=== PATIENT | male | born 1980 | race Caucasian/White ===

== ENCOUNTER → 2016-07-31 | Outpatient (CLI) | payer BC, OTHER ==
[~2016-07-31] MED LIST: IBUPOTC PO; LEVO125T3 PO; LINE600T PO; TEST200I14 IM; TYLE325T5 PO
== END | disposition home or self-care (01) ==
LOC: M WUC 15:42
PROVIDERS: ATTEND Family Medicine
DX: E29.1 Testicular hypofunction (principal)

== ENCOUNTER → 2016-08-28 | Outpatient (REF) | payer OTHER | END | disposition home or self-care (01) | LOC: M LAB REF 12:59 | PROVIDERS: ATTEND Surgery | DX: L72.3 Sebaceous cyst (principal) ==

== ENCOUNTER → 2016-10-12 | Outpatient (REF) | payer OTHER | LOC: M LAB REF 12:36 | PROVIDERS: ATTEND Physician Assistant | DX: J02.9 Acute pharyngitis, unspecified (principal) ==

== ENCOUNTER → 2016-11-07 | Outpatient (CLI) | payer BC, OTHER ==
[2016-11-07 20:03] LABS: ALBUMIN/GLOBULIN RATIO 1.11 (1.00-1.93); ALKALINE PHOSPHATASE 81 U/L (45-117); ALT/SGPT 34 U/L (12-78); ANION GAP 7 MEQ/L (8-16); AST/SGOT 16 U/L (15-37); BLOOD UREA NITROGEN 10 MG/DL (7-18); CALCIUM LEVEL 9.1 MG/DL (8.5-10.1); CARBON DIOXIDE LEVEL 29 MEQ/L (21-32); CHLORIDE LEVEL 103 MEQ/L (98-107); CREATININE FOR GFR 1.17 MG/DL (0.70-1.30); FREE T4 1.03 NG/DL (0.76-1.46); GLOMERULAR FILTRATION RATE > 60.0 (>60); GLUCOSE, FASTING 92 MG/DL (70-105); POTASSIUM SERUM 4.2 MEQ/L (3.5-5.1); SODIUM LEVEL 139 MEQ/L (136-145); TOTAL PROTEIN 7.6 GM/DL (6.4-8.2)
== END ==
LOC: M WUC 18:14
PROVIDERS: ATTEND Family Medicine
DX: E29.1 Testicular hypofunction (principal); E03.9 Hypothyroidism, unspecified

== ENCOUNTER → 2016-12-11 | Outpatient (REF) | payer OTHER | LOC: M LAB REF 13:25 | PROVIDERS: ATTEND Physician Assistant | DX: J02.9 Acute pharyngitis, unspecified (principal) ==

== ENCOUNTER → 2017-09-02 | Outpatient (CLI) | payer OTHER ==
[2017-09-02 18:57] LABS: ALBUMIN 4.1 GM/DL (3.2-5.2); ALBUMIN/GLOBULIN RATIO 1.11 (1.00-1.93); ALKALINE PHOSPHATASE 74 U/L (45-117); ALT/SGPT 56 U/L (12-78); ANION GAP 7 MEQ/L (8-16); AST/SGOT 25 U/L (7-37); BILIRUBIN,TOTAL 0.6 MG/DL (0.2-1.0); BLOOD UREA NITROGEN 9 MG/DL (7-18); CALCIUM LEVEL 9.1 MG/DL (8.5-10.1); CARBON DIOXIDE LEVEL 30 MEQ/L (21-32); CHLORIDE LEVEL 103 MEQ/L (98-107); CREATININE FOR GFR 1.05 MG/DL (0.70-1.30); GLOMERULAR FILTRATION RATE > 60.0 (>60); GLUCOSE, FASTING 76 MG/DL (70-100); POTASSIUM SERUM 4.2 MEQ/L (3.5-5.1); PROSTATIC SPECIFIC AG MONITOR 0.42 NG/ML (< 4.0); SODIUM LEVEL 140 MEQ/L (136-145); TOTAL PROTEIN 7.8 GM/DL (6.4-8.2)
[2017-09-02 20:15] LABS: TESTOSTERONE 449 NG/DL (241-827)
== END ==
LOC: M WUC 16:12
DX: E29.1 Testicular hypofunction (principal)
CPT/HCPCS: 84403

== ENCOUNTER → 2018-07-03 | Outpatient (CLI) | payer OTHER ==
[2018-07-03 12:15] LABS: ALBUMIN 3.9 GM/DL (3.2-5.2); ALBUMIN/GLOBULIN RATIO 1.08 (1.00-1.93); ALKALINE PHOSPHATASE 77 U/L (45-117); ALT/SGPT 42 U/L (12-78); ANION GAP 6 MEQ/L (8-16); AST/SGOT 19 U/L (7-37); BILIRUBIN,TOTAL 0.7 MG/DL (0.2-1.0); BLOOD UREA NITROGEN 11 MG/DL (7-18); CALCIUM LEVEL 9.4 MG/DL (8.5-10.1); CARBON DIOXIDE LEVEL 32 MEQ/L (21-32); CHLORIDE LEVEL 103 MEQ/L (98-107); CREATININE FOR GFR 1.16 MG/DL (0.70-1.30); FREE T3 3.4 PG/ML (2.2-4.0); FREE T4 0.91 NG/DL (0.76-1.46); GLOMERULAR FILTRATION RATE > 60.0 (>60); GLUCOSE, FASTING 79 MG/DL (70-100); PROSTATIC SPECIFIC AG MONITOR 0.6 NG/ML (< 4.0); SODIUM LEVEL 141 MEQ/L (136-145); TESTOSTERONE 312 NG/DL (241-827); TOTAL PROTEIN 7.5 GM/DL (6.4-8.2)
== END ==
LOC: M WUC 09:00
DX: E29.1 Testicular hypofunction (principal); E03.9 Hypothyroidism, unspecified
CPT/HCPCS: 84403

== ENCOUNTER → 2018-09-09 | Outpatient (CLI) | payer OTHER ==
[~2018-09-09] MED LIST changes: -LEVO125T3 PO; +LEVO125T4 PO; -LINE600T PO; +LINE600T11 PO
== END ==
LOC: M WUC 10:36
PROVIDERS: ATTEND Family Medicine
DX: E29.1 Testicular hypofunction (principal)

== ENCOUNTER 2018-09-21 12:35 | Emergency (ER) | payer BC, OTHER ==
[~2018-09-21] VITALS: Ht 180.3 cm; Wt 122.7 kg
[2018-09-21] MEDS ORDERED: LIDOCAINE W/EPINEPHRINE 1% 20ML VIAL SC ONE (13:00)
[2018-09-21 14:07] VITALS: BP 133/73
== END 2018-09-21 14:12 | disposition home or self-care (01) ==
LOC: M ED 12:35
DX: S01.419A Laceration without foreign body of unspecified cheek and temporomandibular area, initial encounter (principal); W50.0XXA Accidental hit or strike by another person, initial encounter; Y92.019 Unspecified place in single-family (private) house as the place of occurrence of the external cause

== ENCOUNTER → 2018-10-03 | Outpatient (CLI) | payer OTHER, BC ==
[2018-10-03 13:56] LABS: PROLACTIN 22.3 NG/ML (2.1-17.7)
== END ==
LOC: M WUC 10:34
PROVIDERS: ATTEND Family Medicine
DX: E29.1 Testicular hypofunction (principal)

== ENCOUNTER → 2019-01-26 | Outpatient (CLI) | payer OTHER, BC ==
[~2019-01-26] MED LIST changes: +ACET-683 PO; +CYCL5TAB PO; +IBUP200C25 PO; +LIDO5DIS41 TD; +LINE1TAB6 PO; -LINE600T11 PO
[2019-01-26 21:00] LABS: FREE T3 3.4 PG/ML (2.2-4.0)
[2019-01-26 21:01] LABS: FOLLICLE STIMULATING HORMONE < 0.3 mIU/mL (1.4-18.1); LUTEINIZING HORMONE < 0.1 mIU/mL (1.5-9.3); TESTOSTERONE 276 NG/DL (241-827)
== END ==
LOC: M WUC 15:57
PROVIDERS: ATTEND Family Medicine
DX: E29.1 Testicular hypofunction (principal); E03.9 Hypothyroidism, unspecified

== ENCOUNTER 2019-03-14 16:30 | Emergency (ER) | payer BC, OTHER ==
[~2019-03-14] VITALS: Ht 180.3 cm; Wt 117.9 kg
[~2019-03-14 16:30] MED LIST changes: -ACET-683 PO; -CYCL5TAB PO; -IBUP200C25 PO; -LIDO5DIS41 TD
[2019-03-14] MEDS ORDERED: IBUP200C25 PO (17:34)
[2019-03-14] MEDS ORDERED: LIDO5DIS41 TD (18:37)
[2019-03-14] MEDS ORDERED: ACET-683 PO (18:37)
[2019-03-14] MEDS ORDERED: CYCL5TAB PO (18:37)
[2019-03-14] MEDS ORDERED: NORCO 5/325MG TABLET (BULK FOR ED) PO ONE (18:45)
[2019-03-14] MEDS ORDERED: LIDOCAINE 5% (LIDODERM) PATCH TD ONE (18:45)
[2019-03-14 18:57] VITALS: BP 120/71
== END 2019-03-14 18:59 | disposition home or self-care (01) ==
LOC: M ED 16:30
DX: S39.92XA Unspecified injury of lower back, initial encounter (principal); X50.0XXA Overexertion from strenuous movement or load, initial encounter; Y92.149 Unspecified place in prison as the place of occurrence of the external cause; Y93.89 Activity, other specified; Y99.0 Civilian activity done for income or pay; E03.9 Hypothyroidism, unspecified; F17.210 Nicotine dependence, cigarettes, uncomplicated; Z79.890 Hormone replacement therapy; Z79.899 Other long term (current) drug therapy

== ENCOUNTER → 2019-09-09 | Outpatient (CLI) | payer BC, OTHER ==
[~2019-09-09] MED LIST changes: +ACET-683 PO; +CYCL5TAB PO; +IBUP200C25 PO; +LIDO5DIS41 TD
[2019-09-09 19:01] LABS: HEMATOCRIT 53.4 % (42.0-52.0); HEMOGLOBIN 18.6 g/dl (13.5-17.5); MEAN CORPUSCULAR HEMOGLOBIN 31.1 pg (27.0-33.0); MEAN CORPUSCULAR HGB CONC 34.8 g/dl (32.0-36.5); MEAN CORPUSCULAR VOLUME 89.3 fl (80.0-96.0); PLATELET COUNT, AUTOMATED 220 10^3/uL (150-450); RED BLOOD COUNT 5.98 10^6/uL (4.30-6.10); WHITE BLOOD COUNT 9.3 10^3/uL (4.0-10.0)
[2019-09-09 19:30] LABS: ALBUMIN 4.1 GM/DL (3.2-5.2); ALT/SGPT 63 U/L (12-78); BILIRUBIN,TOTAL 0.5 MG/DL (0.2-1.0); BLOOD UREA NITROGEN 4 MG/DL (7-18); CALCIUM LEVEL 9.5 MG/DL (8.5-10.1); CARBON DIOXIDE LEVEL 32 MEQ/L (21-32); CHLORIDE LEVEL 103 MEQ/L (98-107); CREATININE FOR GFR 1.03 MG/DL (0.70-1.30); FREE T3 3.6 PG/ML (2.2-4.0); FREE T4 1.18 NG/DL (0.76-1.46); GLOMERULAR FILTRATION RATE > 60.0 (>60); GLUCOSE, FASTING 76 MG/DL (70-100); POTASSIUM SERUM 4.6 MEQ/L (3.5-5.1); PROSTATIC SPECIFIC AG MONITOR 0.63 NG/ML (< 4.00); SODIUM LEVEL 141 MEQ/L (136-145); TOTAL PROTEIN 7.7 GM/DL (6.4-8.2)
[2019-09-09 19:31] LABS: PROLACTIN 21.7 NG/ML (2.1-17.7); TESTOSTERONE 904 NG/DL (241-827)
== END ==
LOC: M WUC 17:37
PROVIDERS: ATTEND Family Medicine
DX: Z79.899 Other long term (current) drug therapy (principal); E03.9 Hypothyroidism, unspecified

== ENCOUNTER 2019-11-09 00:34 | Emergency (ER) | payer BC, OTHER ==
[~2019-11-09] VITALS: Ht 180.3 cm; Wt 127.3 kg
[2019-11-09] MEDS ORDERED: NS 1,000 ML IV ONE (01:15)
[2019-11-09] MEDS ORDERED: KETOROLAC 30 MG/ML 1ML VIAL (J1885 PER 15MG) IV ONE (01:30)
[2019-11-09 01:34] LABS: BASO # 0.1 10^3/uL (0.0-0.2); BASO % 1.4 % (0.0-1.0); EOS # 0.5 10^3/uL (0.0-0.5); HEMATOCRIT 52.6 % (42.0-52.0); HEMOGLOBIN 18.6 g/dl (13.5-17.5); LYMPH # 2.7 10^3/uL (1.5-5.0); LYMPH % 27.2 % (24.0-44.0); MEAN CORPUSCULAR HEMOGLOBIN 31.3 pg (27.0-33.0); MEAN CORPUSCULAR HGB CONC 35.4 g/dl (32.0-36.5); MEAN CORPUSCULAR VOLUME 88.4 fl (80.0-96.0); MONO % 9.8 % (0.0-5.0); NEUTROPHILS # 5.5 10^3/uL (1.5-8.5); NEUTROPHILS % 56.4 % (36.0-66.0); PLATELET COUNT, AUTOMATED 276 10^3/uL (150-450); RED BLOOD COUNT 5.95 10^6/uL (4.30-6.10); WHITE BLOOD COUNT 9.8 10^3/uL (4.0-10.0)
--- NOTE | 2019-11-09 01:36 | REPVR ---
PROCEDURE INFORMATION: Exam: CT Abdomen And Pelvis Without Contrast Exam date and time: 11/09/2019 1:12 AM Age: 39 years old Clinical indication: Abdominal pain; Additional info: L colic TECHNIQUE: Imaging protocol: Computed tomography of the abdomen and pelvis without contrast. Radiation optimization: All CT scans at this facility use at least one of these dose optimization techniques: automated exposure control; mA and/or kV adjustment per patient size (includes targeted exams where dose is matched to clinical indication); or iterative reconstruction. COMPARISON: CT ABD PELVIS W/O CONTRAST 10/02/2014 11:12 AM FINDINGS: Liver: Normal. No mass. Gallbladder and bile ducts: Normal. No calcified stones. No ductal dilation. Pancreas: Normal. No ductal dilation. Spleen: Normal. No splenomegaly. Adrenals: Normal. No mass. Kidneys and ureters: Normal. No hydronephrosis. Stomach and bowel: Changes of prior partial gastrectomy. No gastric obstruction or inflammatory changes. No inflammatory changes in the colon or small bowel. No bowel obstruction. Appendix: No evidence of appendicitis. Intraperitoneal space: Unremarkable. No free air. No significant fluid collection. Vasculature: Unremarkable. No abdominal aortic aneurysm. Lymph nodes: Unremarkable. No enlarged lymph nodes. Bladder: Unremarkable as visualized. Reproductive: Unremarkable as visualized. Bones/joints: Unremarkable. No acute fracture. Soft tissues: Unremarkable. IMPRESSION: No acute findings. Electronically signed by: Ozzy Parker On 11/09/2019 01:36:00 AM
[2019-11-09 01:50] LABS: BLOOD UREA NITROGEN 8 MG/DL (7-18); CARBON DIOXIDE LEVEL 30 MEQ/L (21-32); CHLORIDE LEVEL 105 MEQ/L (98-107); GLOMERULAR FILTRATION RATE > 60.0 (>60); GLUCOSE, FASTING 108 MG/DL (70-100); POTASSIUM SERUM 4.1 MEQ/L (3.5-5.1); SODIUM LEVEL 140 MEQ/L (136-145)
[2019-11-09 03:13] LABS: APPEARANCE, URINE HAZY (CLEAR); BACTERIA, URINE AUTO NEGATIVE (NEGATIVE); BILIRUBIN, URINE AUTO 1+ (NEGATIVE); BLOOD, URINE BLOOD NEGATIVE (NEGATIVE); COLOR, URINE AMBER (YELLOW); GLUCOSE, URINE (UA) AUTO NEGATIVE (NEGATIVE); KETONE, URINE AUTO TRACE mg/dL (NEGATIVE); LEUKOCYTE ESTERASE, URINE AUTO TRACE (NEGATIVE); MUCUS, URINE LARGE (NEGATIVE); NITRITE, URINE AUTO NEGATIVE (NEGATIVE); PROTEIN, URINE AUTO 1+ mg/dL (NEGATIVE); RBC, URINE AUTO 1 /HPF (0-3); SPECIFIC GRAVITY URINE AUTO 1.026 (1.002-1.035); SQUAMOUS EPITHELIAL CELL UR AU 0 /HPF (0-6); WBC, URINE AUTO 5 /HPF (0-3)
[2019-11-09 04:32] LABS: CHLAMYDIA DNA AMPLIFICATION NEGATIVE (NEGATIVE); GC DNA AMPLIFICATION NEGATIVE (NEGATIVE)
[2019-11-09] MEDS ORDERED: DOXY100C37 PO (04:40)
[2019-11-09 04:45] VITALS: BP 125/74
== END 2019-11-09 04:51 | disposition home or self-care (01) ==
LOC: M ED 00:34
DX: N45.1 Epididymitis (principal); R42 Dizziness and giddiness; E03.9 Hypothyroidism, unspecified; Z98.84 Bariatric surgery status; Z87.891 Personal history of nicotine dependence; Z91.030 Bee allergy status; Z79.899 Other long term (current) drug therapy

== ENCOUNTER → 2020-04-06 | Outpatient (CLI) | payer BC, OTHER ==
[~2020-04-06] MED LIST changes: +DOXY100C37 PO
[2020-04-06 18:18] LABS: BASO # 0.1 10^3/uL (0.0-0.2); BASO % 1.5 % (0.0-1.0); EOS # 0.5 10^3/uL (0.0-0.5); EOS % 5.3 % (0.0-3.0); HEMATOCRIT 55.3 % (42.0-52.0); HEMOGLOBIN 19.1 g/dl (13.5-17.5); LYMPH # 2.1 10^3/uL (1.5-5.0); LYMPH % 23.5 % (24.0-44.0); MEAN CORPUSCULAR HEMOGLOBIN 31.2 pg (27.0-33.0); MEAN CORPUSCULAR HGB CONC 34.5 g/dl (32.0-36.5); MEAN CORPUSCULAR VOLUME 90.4 fl (80.0-96.0); MONO # 0.9 10^3/uL (0.0-0.8); NEUTROPHILS # 5.2 10^3/uL (1.5-8.5); PLATELET COUNT, AUTOMATED 237 10^3/uL (150-450); RED BLOOD COUNT 6.12 10^6/uL (4.30-6.10); WHITE BLOOD COUNT 8.8 10^3/uL (4.0-10.0)
[2020-04-06 18:31] LABS: ALBUMIN 3.8 GM/DL (3.2-5.2); ALT/SGPT 50 U/L (12-78); BILIRUBIN,TOTAL 0.6 MG/DL (0.2-1.0); BLOOD UREA NITROGEN 8 MG/DL (7-18); CALCIUM LEVEL 9.5 MG/DL (8.5-10.1); CARBON DIOXIDE LEVEL 28 MEQ/L (21-32); CHLORIDE LEVEL 107 MEQ/L (98-107); CREATININE FOR GFR 1.12 MG/DL (0.70-1.30); FOLATE 3.4 NG/ML; FREE T4 1.09 NG/DL (0.76-1.46); GLOMERULAR FILTRATION RATE > 60.0 (>60); GLUCOSE, FASTING 84 MG/DL (70-100); POTASSIUM SERUM 4.8 MEQ/L (3.5-5.1); SODIUM LEVEL 138 MEQ/L (136-145); THYROID PEROXIDASE ANTIBODY 857.5 U/ML (<60.0); TOTAL 25(OH) VITAMIN D 31.6 NG/ML (30.0-100.0); TOTAL PROTEIN 7.6 GM/DL (6.4-8.2); VITAMIN B12 LEVEL 1213 PG/ML
[2020-04-06 18:49] LABS: HEMOGLOBIN A1c 5.2 %
[2020-04-08 17:07] LABS: PSA TOTAL 0.7 ng/mL (0.0-4.0); TESTOSTERONE FREE (DIRECT) 11.7 pg/mL (8.7-25.1); THRYOGLOBULIN ANTIBODIES (ATA) < 1.0 IU/mL (0.0-0.9); THYROGLOBULIN QUANTITATIVE 26.8 ng/mL (1.4-29.2)
== END ==
LOC: M WUC 11:21
PROVIDERS: ATTEND Physician Assistant
DX: E29.1 Testicular hypofunction (principal); Z98.84 Bariatric surgery status; E66.8 Other obesity; E03.9 Hypothyroidism, unspecified

== ENCOUNTER → 2020-06-13 | Outpatient (CLI) | payer OTHER ==
[2020-06-13 10:14] LABS: BASO # 0.1 10^3/uL (0.0-0.2); BASO % 1.3 % (0.0-1.0); EOS # 0.4 10^3/uL (0.0-0.5); EOS % 4.6 % (0.0-3.0); HEMATOCRIT 53.8 % (42.0-52.0); HEMOGLOBIN 18.1 g/dl (13.5-17.5); LYMPH # 1.6 10^3/uL (1.5-5.0); LYMPH % 19.3 % (24.0-44.0); MEAN CORPUSCULAR HEMOGLOBIN 30.7 pg (27.0-33.0); MEAN CORPUSCULAR HGB CONC 33.6 g/dl (32.0-36.5); MEAN CORPUSCULAR VOLUME 91.3 fl (80.0-96.0); MONO # 0.9 10^3/uL (0.0-0.8); MONO % 10.4 % (0.0-5.0); NEUTROPHILS # 5.3 10^3/uL (1.5-8.5); NEUTROPHILS % 63.9 % (36.0-66.0); PLATELET COUNT, AUTOMATED 248 10^3/uL (150-450); RED BLOOD COUNT 5.89 10^6/uL (4.30-6.10); WHITE BLOOD COUNT 8.3 10^3/uL (4.0-10.0)
[2020-06-14 11:08] LABS: TESTOSTERONE FREE (DIRECT) 22.2 pg/mL (8.7-25.1)
== END ==
LOC: M WUC 08:10
PROVIDERS: ATTEND Physician Assistant
DX: E29.1 Testicular hypofunction (principal)

== ENCOUNTER 2020-08-27 00:11 | Emergency (ER) | payer BC, OTHER ==
[~2020-08-27] VITALS: Ht 177.8 cm; Wt 120.5 kg
--- OUTSIDE RECORDS SUMMARY | 2020-08-27 00:16 | CCD | Continuity of Care Document ---
Author Author Agustin BARTH Organization Unknown Address [address] [place] [address] 6 [address] [place] [address] Phone [phone] Care Team Providers Care Gun Welder Name Role Phone Wendy Chaparro D.O. AUTM Johnson Alan M.D. AUTM [phone] [facility] AUTM [phone] Jill Alvarado DYE HOUSE HAND AUTM [phone] Problems Active Problems Provider Date Obesity ALTON Mar Onset: 03/21/2020 Hypogonadism [place] Mar Onset: 03/21/2020 Secondary erectile dysfunction AL[place] Mar Onset: 0 03/21/2020 Bariatric operative procedure [place] Mar Onset: Obstructive sleep apnea syndrome AL[place] Mar Onset: 03/21/2020 Tobacco user [place] Mar Onset: 03/21/2020 Social History Type Date Description Comments Sex Unknown ETOH Use Currently consumes alcohol 12 pe r week Tobacco Use Start: Unknown Heavy tobacco smoker (more than 10 cigarettes/day) Recreational Drug Use Denies Drug Use Smoking Status Reviewed: 07/19/20 Heavy tobacco smoker (more than 10 cigarettes/day) Sun Exposure Uses sunscreen Seat Belt/Car Seat Always uses seat belt Allergies, Adverse Reactions, Alerts Description No Known Drug Allergies Medications Active Medications SIG Qnty Indications Ordering Provide r Date Fluconazole 150mg Tablets 1 tab by mouth as needed 3tabs N48.1 Wendy Chaparro D.OElba 05/24 Saxenda 18mg/3ML Solution Pen-Inje ct 0.6mg sq once daily week 1, 1.2mg once daily week 2, 1.8mg once daily week 3, 2.4mg once daily week 4, 3mg once daily week 5 45ml E66.8 Bessy Mullins.O. 04/21/2020 Novofine Plus 32G X 4 mm Misc pen needles to use with saxenda pen daily 100units E66.8 Wendy Apodaca er, D.O. 04/21/2020 Syringe/Luer Lock/3ML/20G X 1-1/2" 20G X 1-1/2" 3 ML Misc 1 for testoterone administration 1box E29.1 Bessy Flowers.O. 04/21/2020 BD Disposable Needle 23GX1" Precision Gl fabienne 23G X 1" Misc 1 for testosterone injection 1box E29.1 Bessy Ingram.O. 04/21/2020 Levothyroxine Sodium 125mcg Tablet s tk 1 t by mouth every day in the morning oes 90tabs Bessy Ramon.O. Testosterone Cypionate 200mg/ml So lution inject 1.5 mls intramuscularly every 2 weeks 10ml Bessy Ingram.O. Tadalafil 20mg Tablets tk 1 t by mouth every day as needed 30tabs Bessy Flowers.O. 0 History Medications Prednisone 50mg Tablets 1 by mouth every day 7tabs N48.1 Bessy Flowers.O. 05/24 - 07/19/2020 Fluconazole 150mg Tablets 1 tab by mouth as needed 3tabs B37.9 Bessy Flowers.OElba 04/21 - 05/24/2020 Immunizations Description No Information Available Vital Signs Date Vital Result Comment 07/19/2020 1:03pm BP Systolic 126 mmHg BP Diastolic 72 mmHg Height 71.2 inches 5'11.20" Weight 269.50 lb BMI (Body Mass Index) 37.4 kg/m2 Heart Rate 94 /min Respiratory Rate 18 /min Body Temperature 97.5 F O2 % BldC Oximetry 99 % [place] Body Weight 172 lb 05/24/2020 11:49am BP Systolic 124 mmHg BP Diastolic 78 mmHg Height 71.2 inches 5'11.20" Weight 267.25 lb BMI (Body Mass Index) 37.1 kg/m2 Heart Rate 89 /min Respiratory Rate 16 /min Body Temperature 98.0 F O2 % BldC Oximetry 97 % [place] Body Weight 172 lb Results Test Acquired Date Facility Test Result H/L Range Note Testosterone Free & Total 06/13/2020 [facility] Outpatient Testing (Registration) [address] [place] [address] [phone] Testosterone Free (Direct) 22.2 pg/mL Normal 8.7-2 5.1 1 Testosterone Total For T&D 814.0 ng/dL Normal 264-916 2 CBC With Differential 06/13/2020 [facility] Outpatient Iesha ting (Registration) [address] [place] [address] [phone] White Blood Count 8.3 10 Normal 4.0-10.0 Red Blood Count 5.89 10 Normal 4.30-6.10 Hemoglobin 18.1 g/dL High 13.5-17.5 Hematocrit 53.8 % High 42.0-52.0 Mean Corpuscular Volume 91.3 fl Normal 80.0-96.0 Mean Corpuscular Hemoglobin 30.7 pg Normal 27.0-33.0 Mean Corpuscular HGB Conc 33.6 g/dL Normal 32.0-36.5 Red Cell Distribution Width 13.5 % Normal 11.5-14.5 Platelet Count, Automated 248 10 Normal 150-450 Neutrophils % 63.9 % Normal 36.0-66.0 Lymph % 19.3 % Low 24.0-44.0 [place] % 10.4 % High 0.0-5.0 Eos % 4.6 % High 0.0-3.0 Baso % 1.3 % High 0.0-1.0 Immature Granulocyte % 0.5 % Normal 0-3.0 Nucleated Red Blood Cell % 0.0 % Normal 0-0 Neutrophils # 5.3 10 Normal 1.5-8.5 Lymph # 1.6 10 Normal 1.5-5.0 [place] # 0.9 10 High 0.0-0.8 Eos # 0.4 10 Normal 0.0-0.5 Baso # 0.1 10 Normal 0.0-0.2 CBC With Differential 04/06/2020 [facility] Outpatient Iesha ting (Registration) [address] [place] [address] [phone] White Blood Count 8.8 10 Normal 4.0-10.0 Red Blood Count 6.12 10 High 4.30-6.10 Hemoglobin 19.1 g/dL High 13.5-17.5 Hematocrit 55.3 % High 42.0-52.0 Mean Corpuscular Volume 90.4 fl Normal 80.0-96.0 Mean Corpuscular Hemoglobin 31.2 pg Normal 27.0-33.0 Mean Corpuscular HGB Conc 34.5 g/dL Normal 32.0-36.5 Red Cell Distribution Width 13.9 % Normal 11.5-14.5 Platelet Count, Automated 237 10 Normal 150-450 Neutrophils % 59.0 % Normal 36.0-66.0 Lymph % 23.5 % Low 24.0-44.0 [place] % 10.0 % High 0.0-5.0 Eos % 5.3 % High 0.0-3.0 Baso % 1.5 % High 0.0-1.0 Immature Granulocyte % 0.7 % Normal 0-3.0 Nucleated Red Blood Cell % 0.0 % Normal 0-0 Neutrophils # 5.2 10 Normal 1.5-8.5 Lymph # 2.1 10 Normal 1.5-5.0 [place] # 0.9 10 High 0.0-0.8 Eos # 0.5 10 Normal 0.0-0.5 Baso # 0.1 10 Normal 0.0-0.2 PSA Free & Total 04/06/2020 [facility] Outpatient Testi ng (Registration) [address] [place] [address] [phone] PSA Total 0.7 ng/mL Normal 0.0-4.0 3 PSA Comment (SEE NOTE) Normal . 4 Testosterone Free & Total 04/06/2020 [facility] Outpatient Testing (Registration) [address] [place] [address] [phone] Testosterone Free (Direct) 11.7 pg/mL Normal 8.7-2 5.1 Testosterone Total For T&D 623.0 ng/dL Normal 264-916 5 Comprehensive Metabolic Profil 04/06/2020 [facility] Outpa tient Testing (Registration) [address] [place] [address] [phone] Glucose, Fasting 84 mg/dL Normal 70-100 Blood Urea Nitrogen 8 mg/dL Normal 7-18 Creatinine For GFR 1.12 mg/dL Normal 0.70-1.30 Glomerular Filtration Rate > 60.0 Normal >60 6 Sodium Level 138 mEq/L Normal 136-145 Potassium Serum 4.8 mEq/L Normal 3.5-5.1 Chloride Level 107 mEq/L Normal 98-107 Carbon Dioxide Level 28 mEq/L Normal 21-32 Anion Gap 3 mEq/L Low 8-16 Calcium Level 9.5 mg/dL Normal 8.5-10.1 Ast/Sgot 22 U/L Normal 7-37 Alt/SGPT 50 U/L Normal 12-78 Alkaline Phosphatase 87 U/L Normal 45-117 Bilirubin,Total 0.6 mg/dL Normal 0.2-1.0 Total Protein 7.6 GM/DL Normal 6.4-8.2 Albumin 3.8 GM/DL Normal 3.2-5.2 Albumin/Globulin Ratio 1.0 Normal Laboratory test finding 04/06/2020 [facility] Outpatient T esting (Registration) [address] [place] [address] [phone] Total 25(Oh) Vitamin D 31.6 NG/ML Normal 30.0-100. 0 Vitamin B12 & Folate 04/06/2020 [facility] Outpatient Test ing (Registration) [address] [place] [address] [phone] Vitamin B12 Level 1213 pg/mL Normal 7 Folate 3.4 NG/ML Normal 8 FT4&TSH Panel 04/06/2020 [facility] Outpatient Testi ng (Registration) [address] [place], [place] [address] [phone] Thyroid Stimulating Hormone 3.140 uIU/ML Normal 0. 358-3.740 Free T4 1.09 ng/dL Normal 0.76-1.46 Laboratory test finding 04/06/2020 [facility] Outpatient T esting (Registration) [address] [place] [address] [phone] Thyroid Peroxidase Antibody 857.5 U/ML High <60. 0 Thyroglob QNT Incl Thyrogl [place] 04/06/2020 [facility] Outpa tient Testing (Registration) [address] [place] [address] [phone] Thyroglobulin Quantitative 26.8 ng/mL Normal 1.4-2 9.2 9 Thryoglobulin Antibodies (Ray) < 1.0 IU/mL Normal 0.0-0.9 10 Hemoglobin A1c 04/06/2020 [facility] Outpatient Testi ng (Registration) [address] [place] [address] [phone] Hemoglobin A1c 5.2 % Normal 11 Estimated Average Glucose 103 mg/dL Normal 60-110 1 Performed at: RN - [facility] [address] [id number] Slab Worker: Kat Sarah MD, Phone: [phone] 2 Adult male reference interva l is based on a population of healthy nonobese males (BMI <30) between 19 and 39 years old. Ana et.al. JCEM 2017,102;0886-7994. PMID: 09960890. 3 Dev ECLIA methodology. . According to the [place] [employer], Serum PSA should decrease and remain at undetectable levels after radical prostatectomy. The AUA defines biochemical recurrence as an initial PSA value 0.2 ng/mL or greater followed by a subsequent confirmatory PSA value 0.2 ng/mL or greater. Values obtained with different assay methods or kits cannot be used interchangeably. Results cannot be interpreted as absolute evidence of the presence or absence of malignant disease. 4 . The percent free PSA is performed on a reflex basis only when the total PSA is between 4.0 and 10.0 ng/mL. 5 Adult male reference interva l is based on a population of healthy nonobese males (BMI <30) between 19 and 39 years old. Ana, et.al. JCEM 2017,102;3454-3698. PMID: 25995689. 6 Units are mL/min/1.73 m2 Chronic Kidney Disease Staging per NKF: Stage I & II GFR >=60 Normal to Mildly Decreased Stage III GFR 30-59 Moderately Decreased Stage IV GFR 15-29 Severely Decreased Stage V GFR <15 Very Little GFR Left ESRD GFR <15 on LEAD CASTER HELPER 7 VITAMIN B12 NORMAL RANGE NORMAL 247 - 911 PG/ML INDETERMINATE 211 - 246 PG/ML DEFICIENT LESS THAN 211 PG/ML 8 FOLATE NORMAL RANGE NORMAL GREATER THAN 5.4 NG/ML INDETERMINATE 3.4-5.4 NG/ML DEFICIENT LESS THAN 3.4 NG/ML 9 . According to the National Academy of Clinical Biochemistry, the reference interval for Thyroglobulin (TG) should be related to euthyroid patients and not for patients who underwent thyroidectomy. TG reference intervals for these patients depend on the residual mass of the thyroid tissue left after surgery. Establishing a post-operative baseline is recommended. The assay limit of quantitation is 0.1 ng/mL . Thyroglobulin measured by Tita Skye Immunometric Assay Performed at: - [facility] [address] [id number] Slab Worker: Kat Sarah MD, Phone: [phone] 10 Thyroglobulin Antibody measu red by Tita Skye Methodology 11 REFERENCE RANGES: <=5.6% NORMAL 5.7-6.4% SUGGESTS IMPAIRED GLUCOSE META BOLISM/PREDIABETIC >= 6.5% ABNORMAL Procedures Description No Information Available Medical Devices Description No Information Available Encounters Type Date Location Provider Dx Diagnosis Office Visit 07/19/2020 1:00p [facility] [place] Mar E29.1 Testicular hypofunction G47.33 Obstructive sleep apnea (luz marina lt) (pediatric) Z98.84 Bariatric surgery status E66.8 Other obesity Z68.37 Body mass index [BMI] 37.0-3 7.9, adult Office Visit 05/24/2020 11:40a [facility] [place] Mar N48.1 Balanitis Office Visit 05/04/2020 3:20p [facility] [place] Mar B37.42 Candidal balanitis Office Visit 04/21/2020 2:20p [facility] [place] Mar E29.1 Testicular hypofunction G47.33 Obstructive sleep apnea (luz marina lt) (pediatric) Z98.84 Bariatric surgery status E66.8 Other obesity E03.9 Hypothyroidism, unspecified D75.1 Secondary polycythemia B37.9 Candidiasis, unspecified Office Visit 03/21/2020 2:00p [facility] [place] Mar E29.1 Testicular hypofunction G47.33 Obstructive sleep apnea (luz marina lt) (pediatric) Z98.84 Bariatric surgery status E66.8 Other obesity E03.9 Hypothyroidism, unspecified Assessments Date Code Description Provider 07/19/2020 E29.1 Testicular hypofunction Donovan Barth, PA 07/19/2020 G47.33 Obstructive sleep apnea (adult) (pediatric) Donovan Barth PA 07/19/2020 Z98.84 Bariatric surgery status [place] Mar 07/19/2020 E66.8 Other obesity Donovan Barth , PA 07/19/2020 Z68.37 Body mass index [BMI] 37.0-37.9, adult Donovan Barth PA 05/24/2020 N48.1 Balanitis Donovan Barth , PA 05/04/2020 B37.42 Candidal balanitis Donovan [place], PA 04/21/2020 E29.1 Testicular hypofunction Donovan Barth, PA 04/21/2020 G47.33 Obstructive sleep apnea (adult) (pediatric) Donovan Barth PA 04/21/2020 Z98.84 Bariatric surgery status Donovan Barth, [place] 04/21/2020 E66.8 Other obesity Donovan Barth , PA 04/21/2020 E03.9 Hypothyroidism, unspecified Juan C Barth, PA 04/21/2020 D75.1 Secondary polycythemia Donovan Barth, [place] 04/21/2020 B37.9 Candidiasis, unspecified Donovan Barth, PA 03/21/2020 E29.1 Testicular hypofunction Donovan Barth, PA 03/21/2020 G47.33 Obstructive sleep apnea (adult) (pediatric) [place] Mar 03/21/2020 Z98.84 Bariatric surgery status Donovan Barth, [place] 03/21/2020 E66.8 Other obesity Donovan Barth , PA 03/21/2020 E03.9 Hypothyroidism, unspecified Juan C Barth, PA Plan of Treatment 07/19/2020 - [place] Mar* E29.1 Testicular hypofunction* New Labs:* Testosterone Free & Total, Scheduled: 11/17/20 * PSA Free & Total, Scheduled: 11/17/20 * Comments:* Doing well with your current testosterone regimen. I've refilled your taladalafil. Call for any concerns. * G47.33 Obstructive sleep apnea (adult) (pediatric)* New Labs:* CBC With Differential, Scheduled: 11/17/20 * Comprehensive Metabolic Profil, Scheduled: 11/17/20 * Comments:* Continue your CPAP as prescribed. * Follow up:* 4 months with me for preventative. * Z98.84 Bariatric surgery status* Comments:* As noted below. * E66.8 Other obesity* New Labs:* FT4&TSH Panel, Scheduled: 11/17/20 * Comments:* Your weight has gone up compared with last time. Continue with saxenda as prescribed, and we will discuss further at followup. * Z68.37 Body mass index [BMI] 37.0-37.9, adult Functional Status Description No Information Available Mental Status Description No Information Available Referrals Refer to Reason for Referral Status Appt Date Jill Alvarado NP 39 year old male with penile irritation that has been refractory to conservative care. Please eval and treat. Closed [facility] [address], [address] [facility] [address] [place] [address] [phone]
--- OUTSIDE RECORDS SUMMARY | 2020-08-27 00:16 | CCD | Continuity of Care Document ---
Author Author Agustin ABRTH Organization Unknown Address [address] [place] [address] 6 [address] [place] [address] Phone [phone] Care Team Providers Care Wood Heel Cementer Name Role Phone Wendy Chaparro D.O. AUTM [phone] Johnson Alan M.D. AUTM [phone] [facility] AUTM [phone] Jill Alvarado TEACHER [employer] AUTM [phone] Problems Active Problems Provider Date Obesity ALTON [...] F O2 % BldC Oximetry 99 % [place] Body Weight 172 lb 05/24/2020 11:49am BP Systolic 124 mmHg BP Diastolic 78 mmHg Height 71.2 inches 5'11.20" Weight 267.25 lb BMI (Body Mass Index) 37.1 kg/m2 Heart Rate 89 /min Respiratory Rate 16 /min Body Temperature 98.0 F O2 % BldC Oximetry 97 % [place] Body Weight 172 lb Results Test Acquired Date Facility Test Result H/L Range Note Testosterone Free & Total 06/13/2020 [facility] Outpatient Testing (Registration) [address] [place] [address] [phone] Testosterone Free (Direct) 22.2 pg/mL Normal 8.7-2 5.1 1 Testosterone Total For T&D 814.0 ng/dL Normal 264-916 2 CBC With Differential 06/13/2020 [facility] Outpatient Iesha ting (Registration) [address] [place] [address] [phone] White Blood Count 8.3 10 Normal 4.0-10.0 [...] 36.0-66.0 Lymph % 19.3 % Low 24.0-44.0 [place] % 10.4 % High 0.0-5.0 Eos % 4.6 % High 0.0-3.0 Baso % 1.3 % High 0.0-1.0 Immature Granulocyte % 0.5 % Normal 0-3.0 Nucleated Red Blood Cell % 0.0 % Normal 0-0 Neutrophils # 5.3 10 Normal 1.5-8.5 Lymph # 1.6 10 Normal 1.5-5.0 [place] # 0.9 10 High 0.0-0.8 Eos # 0.4 10 Normal 0.0-0.5 Baso # 0.1 10 Normal 0.0-0.2 CBC With Differential 04/06/2020 [facility] Outpatient Iesha ting (Registration) [address] [place] [address] [phone] White Blood Count 8.8 10 Normal 4.0-10.0 [...] 36.0-66.0 Lymph % 23.5 % Low 24.0-44.0 [place] % 10.0 % High 0.0-5.0 Eos % 5.3 % High 0.0-3.0 Baso % 1.5 % High 0.0-1.0 Immature Granulocyte % 0.7 % Normal 0-3.0 Nucleated Red Blood Cell % 0.0 % Normal 0-0 Neutrophils # 5.2 10 Normal 1.5-8.5 Lymph # 2.1 10 Normal 1.5-5.0 [place] # 0.9 10 High 0.0-0.8 Eos # 0.5 10 Normal 0.0-0.5 Baso # 0.1 10 Normal 0.0-0.2 PSA Free & Total 04/06/2020 [facility] Outpatient Testi ng (Registration) [address] [place] [address] [phone] PSA Total 0.7 ng/mL Normal 0.0-4.0 3 PSA Comment (SEE NOTE) Normal . 4 Testosterone Free & Total 04/06/2020 [facility] Outpatient Testing (Registration) [address] [place] [address] [phone] Testosterone Free (Direct) 11.7 pg/mL Normal 8.7-2 5.1 Testosterone Total For T&D 623.0 ng/dL Normal 264-916 5 Comprehensive Metabolic Profil 04/06/2020 [facility] Outpa tient Testing (Registration) [address] [place] [address] [phone] Glucose, Fasting 84 mg/dL Normal 70-100 Blood [...] Ratio 1.0 Normal Laboratory test finding 04/06/2020 [facility] Outpatient T esting (Registration) [address] [place] [address] [phone] Total 25(Oh) Vitamin D 31.6 NG/ML Normal 30.0-100. 0 Vitamin B12 & Folate 04/06/2020 [facility] Outpatient Test ing (Registration) [address] [place] [address] [phone] Vitamin B12 Level 1213 pg/mL Normal 7 Folate 3.4 NG/ML Normal 8 FT4&TSH Panel 04/06/2020 [facility] Outpatient Testi ng (Registration) [address] [place], [place] [address] [phone] Thyroid Stimulating Hormone 3.140 uIU/ML Normal 0. 358-3.740 Free T4 1.09 ng/dL Normal 0.76-1.46 Laboratory test finding 04/06/2020 [facility] Outpatient T esting (Registration) [address] [place] [address] [phone] Thyroid Peroxidase Antibody 857.5 U/ML High <60. 0 Thyroglob QNT Incl Thyrogl [place] 04/06/2020 [facility] Outpa tient Testing (Registration) [address] [place] [address] [phone] Thyroglobulin Quantitative 26.8 ng/mL Normal 1.4-2 9.2 9 Thryoglobulin Antibodies (Ray) < 1.0 IU/mL Normal 0.0-0.9 10 Hemoglobin A1c 04/06/2020 [facility] Outpatient Testi ng (Registration) [address] [place] [address] [phone] Hemoglobin A1c 5.2 % Normal 11 Estimated Average Glucose 103 mg/dL Normal 60-110 1 Performed at: RN - [facility] [address] [id number] Coal Carrier: Kat Sarah MD, Phone: [phone] 2 Adult male reference interva l is based on a population of healthy nonobese males (BMI <30) between 19 and 39 years old. Ana et.al. JCEM 2017,102;0824-9018. PMID: 77427001. 3 Dev ECLIA methodology. . According to the [place] [employer], Serum PSA should decrease and [...] and 39 years old. Ana, et.al. JCEM 2017,102;6785-5753. PMID: 88913553. 6 Units are mL/min/1.73 m2 Chronic Kidney Disease Staging per NKF: Stage I & II GFR >=60 Normal to Mildly Decreased Stage III GFR 30-59 Moderately Decreased Stage IV GFR 15-29 Severely Decreased Stage V GFR <15 Very Little GFR Left ESRD GFR <15 on VENDING TECHNICIAN 7 VITAMIN B12 NORMAL RANGE NORMAL 247 [...] Skye Immunometric Assay Performed at: - [facility] [address] [id number] Coal Carrier: Kat Sarah MD, Phone: [phone] Thyroglobulin Antibody measu red by Tita Skye Methodology 11 REFERENCE RANGES: <=5.6% NORMAL 5.7-6.4% SUGGESTS IMPAIRED GLUCOSE META BOLISM/PREDIABETIC >= 6.5% ABNORMAL Procedures Description No Information Available Medical Devices Description No Information Available Encounters Type Date Location Provider Dx Diagnosis Office Visit 05/24/2020 11:40a [facility] [place] Mar N48.1 Balanitis Office Visit 05/04/2020 3:20p [facility] [place] Mar B37.42 Candidal balanitis Office Visit 04/21/2020 2:20p [facility] [place] Mar E29.1 Testicular hypofunction G47.33 Obstructive sleep apnea (luz marina lt) (pediatric) Z98.84 Bariatric surgery status E66.8 Other obesity E03.9 Hypothyroidism, unspecified D75.1 Secondary polycythemia B37.9 Candidiasis, unspecified Office Visit 03/21/2020 2:00p [facility] [place] Mar E29.1 Testicular hypofunction G47.33 Obstructive sleep apnea (luz marina lt) (pediatric) Z98.84 Bariatric surgery status E66.8 Other obesity E03.9 Hypothyroidism, unspecified Assessments Date Code Description Provider 07/19/2020 E29.1 Testicular hypofunction AL[place] Mar 07/19/2020 G47.33 Obstructive sleep apnea (adult) (pediatric) [place] Mar 07/19/2020 Z98.84 Bariatric surgery status [place] Mar 07/19/2020 E66.8 Other obesity Donovan Barth , PA 07/19/2020 Z68.37 Body mass index [BMI] 37.0-37.9, adult Donovan Barth PA 05/24/2020 N48.1 Balanitis Donovan Barth , PA 05/04/2020 B37.42 Candidal balanitis Donovan [place], PA 04/21/2020 E29.1 Testicular hypofunction Donovan Barth, PA 04/21/2020 G47.33 Obstructive sleep apnea (adult) (pediatric) Donovan Barth, PA 04/21/2020 Z98.84 Bariatric surgery status Donovan Barth, AL[place] 04/21/2020 E66.8 Other obesity Donovan Barth , [place] 04/21/2020 E03.9 Hypothyroidism, unspecified Juan C Barth, PA 04/21/2020 D75.1 Secondary polycythemia Donovan Barth, [place] 04/21/2020 B37.9 Candidiasis, unspecified Donovan Barth, PA 03/21/2020 E29.1 Testicular hypofunction Donovan Barth, PA 03/21/2020 G47.33 Obstructive sleep apnea (adult) (pediatric) Donovan Barth, [place] 03/21/2020 Z98.84 Bariatric surgery status Donovan Barth, [place] 03/21/2020 E66.8 Other obesity Donovan aBrth , [place] 03/21/2020 E03.9 Hypothyroidism, unspecified [place] Raya Plan of Treatment 07/19/2020 - [place] Mar* [...] conservative care. Please eval and treat. Closed [facility] [address], [address] [facility] [address] [place] [address] [phone]
--- OUTSIDE RECORDS SUMMARY | 2020-08-27 00:17 | CCD | Continuity of Care Document ---
Author Author Agustin BARTH Organization Unknown Address [address] [place] [address] 6 [address] [place] [address] Phone [phone] Care Team Providers Care Lusterer Name Role Phone Wendy Chaparro D.O. AUTM [phone] Johnson Alan M.D. AUTM [phone] [facility] AUTM [phone] Jill Alvarado ELECTRICAL MACHINE BUILDER AUTM [phone] Problems Active Problems Provider Date Obesity ALTON [...] Use Denies Drug Use Smoking Status Reviewed: 04/22/20 Heavy tobacco smoker (more than 10 cigarettes/day) Sun Exposure Uses sunscreen Seat Belt/Car Seat Always uses seat belt Allergies, Adverse Reactions, Alerts Description No Known Drug Allergies Medications Active Medications SIG Qnty Indications Ordering Provide r Date Fluconazole 150mg Tablets 1 tab by mouth as needed 3tabs N48.1 Wendy Chaparro D.OElba 05/24 Prednisone 50mg Tablets 1 by mouth every day 7tabs N48.1 Ana FlowersO. 05/24 Saxenda 18mg/3ML Solution Pen-Inje ct 0.6mg sq once daily week 1, 1.2mg once daily week 2, 1.8mg once daily week 3, 2.4mg once daily week 4, 3mg once daily week 5 45ml E66.8 Bessy Mullins.O. 04/21/2020 Novofine Plus 32G X 4 mm Misc pen needles to use with saxenda pen daily 100units E66.8 Wendy flower, Bessy.O. 04/21/2020 Syringe/Luer Lock/3ML/20G X 1-1/2" 20G X 1-1/2" 3 ML Misc 1 for testoterone administration 1box E29.1 Ana FlowersOElba 04/21/2020 BD Disposable Needle 23GX1" Precision Gl fabienne 23G X 1" Misc 1 for testosterone injection 1box E29.1 Ana IngramOElba 04/21/2020 Levothyroxine Sodium 125mcg Tablet s TK 1 T PO qd In The Morning Oes Unknown 00/0 000 Testosterone Cypionate 200mg/ml So lution inject 1.5 mls intramuscularly every 2 weeks 10ml Ana IngramOElba Tadalafil 20mg Tablets TK 1 T PO qd prn Unknown History Medications Fluconazole 150mg Tablets 1 tab by mouth as needed 3tabs B37.9 Wendy Chaparro D.O. 04/21 - 05/24/2020 Immunizations Description No Information Available Vital Signs Date Vital Result Comment 05/24/2020 11:49am BP Systolic 124 mmHg BP Diastolic 78 mmHg Height 71.2 inches 5'11.20" Weight 267.25 lb BMI (Body Mass Index) 37.1 kg/m2 Heart Rate 89 /min Respiratory Rate 16 /min Body Temperature 98.0 F O2 % BldC Oximetry 97 % [place] Body Weight 172 lb 05/04/2020 3:26pm BP Systolic 126 mmHg BP Diastolic 80 mmHg Height 71.2 inches 5'11.20" Weight 271.25 lb BMI (Body Mass Index) 37.6 kg/m2 Heart Rate 96 /min Respiratory Rate 16 /min Body Temperature 98.2 F O2 % BldC Oximetry 96 % [place] Body Weight 172 lb Results Test Acquired Date Facility Test Result H/L Range Note CBC With Differential 04/06/2020 [facility] Outpatient Iesha ting (Registration) [address] [place] [address] [phone] White Blood Count 8.8 10 Normal 4.0-10.0 [...] 36.0-66.0 Lymph % 23.5 % Low 24.0-44.0 [place] % 10.0 % High 0.0-5.0 Eos % 5.3 % High 0.0-3.0 Baso % 1.5 % High 0.0-1.0 Immature Granulocyte % 0.7 % Normal 0-3.0 Nucleated Red Blood Cell % 0.0 % Normal 0-0 Neutrophils # 5.2 10 Normal 1.5-8.5 Lymph # 2.1 10 Normal 1.5-5.0 [place] # 0.9 10 High 0.0-0.8 Eos # 0.5 10 Normal 0.0-0.5 Baso # 0.1 10 Normal 0.0-0.2 PSA Free & Total 04/06/2020 [facility] Outpatient Testi ng (Registration) [address] [place] [address] [phone] PSA Total 0.7 ng/mL Normal 0.0-4.0 1 PSA Comment (SEE NOTE) Normal . 2 Testosterone Free & Total 04/06/2020 [facility] Outpatient Testing (Registration) [address] [place] [address] [phone] Testosterone Free (Direct) 11.7 pg/mL Normal 8.7-2 5.1 Testosterone Total For T&D 623.0 ng/dL Normal 264-916 3 Comprehensive Metabolic Profil 04/06/2020 [facility] Outpa tient Testing (Registration) [address] [place] [address] [phone] Glucose, Fasting 84 mg/dL Normal 70-100 Blood Urea Nitrogen 8 mg/dL Normal 7-18 Creatinine For GFR 1.12 mg/dL Normal 0.70-1.30 Glomerular Filtration Rate > 60.0 Normal >60 4 Sodium Level 138 mEq/L Normal 136-145 Potassium [...] Ratio 1.0 Normal Laboratory test finding 04/06/2020 [facility] Outpatient T esting (Registration) [address] [place] [address] [phone] Total 25(Oh) Vitamin D 31.6 NG/ML Normal 30.0-100. 0 Vitamin B12 & Folate 04/06/2020 [facility] Outpatient Test ing (Registration) [address] [place] [address] [phone] Vitamin B12 Level 1213 pg/mL Normal 5 Folate 3.4 NG/ML Normal 6 FT4&TSH Panel 04/06/2020 [facility] Outpatient Testi ng (Registration) [address] [place] [address] [phone] Thyroid Stimulating Hormone 3.140 uIU/ML Normal 0. 358-3.740 Free T4 1.09 ng/dL Normal 0.76-1.46 Laboratory test finding 04/06/2020 [facility] Outpatient T esting (Registration) [address] [place] [address] [phone] Thyroid Peroxidase Antibody 857.5 U/ML High <60. 0 Thyroglob QNT Incl Thyrogl [place] 04/06/2020 [facility] Outpa tient Testing (Registration) [address] [place] [address] [phone] Thyroglobulin Quantitative 26.8 ng/mL Normal 1.4-2 9.2 7 Thryoglobulin Antibodies (Ray) < 1.0 IU/mL Normal 0.0-0.9 8 Hemoglobin A1c 04/06/2020 [facility] Outpatient Testi ng (Registration) [address] [place] [address] [phone] Hemoglobin A1c 5.2 % Normal 9 Estimated Average Glucose 103 mg/dL Normal 60-110 1 Dev ECLIA methodology. . According to the [place] [employer], Serum PSA should decrease and [...] the presence or absence of malignant disease. 2 . The percent free PSA is performed on a reflex basis only when the total PSA is between 4.0 and 10.0 ng/mL. 3 Adult male reference interva l is based on a population of healthy nonobese males (BMI <30) between 19 and 39 years old. Ana et.al. JCEM 2017,102;7878-9569. PMID: 19841215. 4 Units are mL/min/1.73 m2 Chronic Kidney Disease Staging per NKF: Stage I & II GFR >=60 Normal to Mildly Decreased Stage III GFR 30-59 Moderately Decreased Stage IV GFR 15-29 Severely Decreased Stage V GFR <15 Very Little GFR Left ESRD GFR <15 on SWIMMING COACH OR INSTRUCTOR 5 VITAMIN B12 NORMAL RANGE NORMAL 247 - 911 PG/ML INDETERMINATE 211 - 246 PG/ML DEFICIENT LESS THAN 211 PG/ML 6 FOLATE NORMAL RANGE NORMAL GREATER THAN 5.4 NG/ML INDETERMINATE 3.4-5.4 NG/ML DEFICIENT LESS THAN 3.4 NG/ML 7 . According to the National Academy of [...] by Tita Skye Immunometric Assay Performed at: RN - [facility] [address] [id number] Director Of Student Financial Services: Kat Sarah MD, Phone: [phone] Thyroglobulin Antibody measu red by Tita Skye Methodology 9 REFERENCE RANGES: <=5.6% NORMAL 5.7-6.4% SUGGESTS IMPAIRED GLUCOSE META BOLISM/PREDIABETIC >= 6.5% ABNORMAL Procedures Description No Information Available Medical Devices Description No Information Available Encounters Type Date Location Provider Dx Diagnosis Office Visit 05/24/2020 11:40a [facility] ALTON Mar N48.1 Balanitis Office Visit 05/04/2020 3:20p [facility] ALTON Mar B37.42 Candidal balanitis Office Visit 04/21/2020 2:20p [facility] ALTON Mar E29.1 Testicular hypofunction G47.33 Obstructive sleep apnea (luz marina lt) (pediatric) Z98.84 Bariatric surgery status E66.8 Other obesity E03.9 Hypothyroidism, unspecified D75.1 Secondary polycythemia B37.9 Candidiasis, unspecified Office Visit 03/21/2020 2:00p [facility] ALTON Mar E29.1 Testicular hypofunction G47.33 Obstructive sleep apnea (luz marina lt) (pediatric) Z98.84 Bariatric surgery status E66.8 Other obesity E03.9 Hypothyroidism, unspecified Assessments Date Code Description Provider 05/24/2020 N48.1 Balanitis ALTON Mar 05/04/2020 B37.42 Candidal balanitis ALTON Anderson 04/21/2020 E29.1 Testicular hypofunction ALTON Mar 04/21/2020 G47.33 Obstructive sleep apnea (adult) (pediatric) ALTON Mar 04/21/2020 Z98.84 Bariatric surgery status ALTON Mar 04/21/2020 E66.8 Other obesity ALTON Mar 04/21/2020 E03.9 Hypothyroidism, unspecified ALTON Raya 04/21/2020 D75.1 Secondary polycythemia ALTON Mar 04/21/2020 B37.9 Candidiasis, unspecified ALTON Mar 03/21/2020 E29.1 Testicular hypofunction ALTON Mar 03/21/2020 G47.33 Obstructive sleep apnea (adult) (pediatric) ALTON Mar 03/21/2020 Z98.84 Bariatric surgery status ALTON Mar 03/21/2020 E66.8 Other obesity ALTON Mar 03/21/2020 E03.9 Hypothyroidism, unspecified ALTON Raya Plan of Treatment Future Appointment(s):* 07/19/2020 1:00 pm - ALTON Mar at [facility] 05/24/2020 - ALTON Mar* N48.1 Balanitis* New Medication:* Fluconazole 150 mg - 1 tab by mouth as needed * Prednisone 50 mg - 1 by mouth every day * Comments:* For the time being, we will treat you with antifungal and steroids, and will refer you to dermatology. Call for any concerns. * Referral:* Jill Alvarado NP, Nurse Practitioner * Follow up:* As already scheduled. Functional Status Description No Information Available Mental Status Description No Information Available Referrals Refer to Reason for Referral Status Appt Date Jill Alvarado NP 39 year old male with penile irritation that has been refractory to conservative care. Please eval and treat. Sent [facility] [address], [address] [facility] [address] [place] [address] [phone]
--- OUTSIDE RECORDS SUMMARY | 2020-08-27 00:17 | CCD | Continuity of Care Document ---
Author Author Agustin BARTH Organization Unknown Address [address] [place] [address] 6 [address] [place] [address] Phone [phone] Care Team Providers Care Cardiac Nurse Name Role Phone Wendy Chaparro D.O. AUTM Johnson Alan M.D. AUTM [phone] [facility] AUTM [phone] Jill Alvarado ENTREPRENEURSHIP PROGRAM DIRECTOR AUTM [phone] Problems Active Problems Provider Date Obesity ALTON [...] F O2 % BldC Oximetry 97 % [place] Body Weight 172 lb 05/04/2020 3:26pm BP Systolic 126 mmHg BP Diastolic 80 mmHg Height 71.2 inches 5'11.20" Weight 271.25 lb BMI (Body Mass Index) 37.6 kg/m2 Heart Rate 96 /min Respiratory Rate 16 /min Body Temperature 98.2 F O2 % BldC Oximetry 96 % [place] Body Weight 172 lb Results Test Acquired Date Facility Test Result H/L Range Note Testosterone Free & Total 06/13/2020 [facility] Outpatient Testing (Registration) [address] [place], [place] [address] [phone] Testosterone Free (Direct) 22.2 pg/mL Normal 8.7-2 5.1 1 Testosterone Total For T&D 814.0 ng/dL Normal 264-916 2 CBC With Differential 06/13/2020 [facility] Outpatient Iesha ting (Registration) [address] [place] [address] [phone] White Blood Count 8.3 10 Normal 4.0-10.0 [...] 36.0-66.0 Lymph % 19.3 % Low 24.0-44.0 [place] % 10.4 % High 0.0-5.0 Eos % 4.6 % High 0.0-3.0 Baso % 1.3 % High 0.0-1.0 Immature Granulocyte % 0.5 % Normal 0-3.0 Nucleated Red Blood Cell % 0.0 % Normal 0-0 Neutrophils # 5.3 10 Normal 1.5-8.5 Lymph # 1.6 10 Normal 1.5-5.0 [place] # 0.9 10 High 0.0-0.8 Eos # 0.4 10 Normal 0.0-0.5 Baso # 0.1 10 Normal 0.0-0.2 CBC With Differential 04/06/2020 [facility] Outpatient Iesha ting (Registration) [address] [place] [address] [phone] White Blood Count 8.8 10 Normal 4.0-10.0 [...] 36.0-66.0 Lymph % 23.5 % Low 24.0-44.0 [place] % 10.0 % High 0.0-5.0 Eos % 5.3 % High 0.0-3.0 Baso % 1.5 % High 0.0-1.0 Immature Granulocyte % 0.7 % Normal 0-3.0 Nucleated Red Blood Cell % 0.0 % Normal 0-0 Neutrophils # 5.2 10 Normal 1.5-8.5 Lymph # 2.1 10 Normal 1.5-5.0 [place] # 0.9 10 High 0.0-0.8 Eos # 0.5 10 Normal 0.0-0.5 Baso # 0.1 10 Normal 0.0-0.2 PSA Free & Total 04/06/2020 [facility] Outpatient Testi ng (Registration) [address] [place] [address] [phone] PSA Total 0.7 ng/mL Normal 0.0-4.0 3 PSA Comment (SEE NOTE) Normal . 4 Testosterone Free & Total 04/06/2020 [facility] Outpatient Testing (Registration) [address] [place] [address] [phone] Testosterone Free (Direct) 11.7 pg/mL Normal 8.7-2 5.1 Testosterone Total For T&D 623.0 ng/dL Normal 264-916 5 Comprehensive Metabolic Profil 04/06/2020 [facility] Outpa tient Testing (Registration) [address] [place] [address] [phone] Glucose, Fasting 84 mg/dL Normal 70-100 Blood [...] Ratio 1.0 Normal Laboratory test finding 04/06/2020 [facility] Outpatient T esting (Registration) [address] [place], [place] [address] [phone] Total 25(Oh) Vitamin D 31.6 NG/ML Normal 30.0-100. 0 Vitamin B12 & Folate 04/06/2020 [facility] Outpatient Test ing (Registration) [address] [place] [address] [phone] Vitamin B12 Level 1213 pg/mL Normal 7 Folate 3.4 NG/ML Normal 8 FT4&TSH Panel 04/06/2020 [facility] Outpatient Testi ng (Registration) [address] [place] [address] [phone] Thyroid Stimulating Hormone 3.140 uIU/ML Normal 0. 358-3.740 Free T4 1.09 ng/dL Normal 0.76-1.46 Laboratory test finding 04/06/2020 [facility] Outpatient T esting (Registration) [address] [place] [address] [phone] Thyroid Peroxidase Antibody 857.5 U/ML High <60. 0 Thyroglob QNT Incl Thyrogl [place] 04/06/2020 [facility] Outpa tient Testing (Registration) [address] [place] [address] [phone] Thyroglobulin Quantitative 26.8 ng/mL Normal 1.4-2 9.2 9 Thryoglobulin Antibodies (Ray) < 1.0 IU/mL Normal 0.0-0.9 10 Hemoglobin A1c 04/06/2020 [facility] Outpatient Testi juan r (Registration) [address] [place] [address] [phone] Hemoglobin A1c 5.2 % Normal 11 Estimated Average Glucose 103 mg/dL Normal 60-110 1 Performed at: RN - [facility] [address] [id number] Continuous Wave Operator: Kat Sarah MD, Phone: [phone] 2 Adult male reference interva l is based on a population of healthy nonobese males (BMI <30) between 19 and 39 years old. Ana, et.al. JCEM 2017,102;9789-9866. PMID: 37773852. 3 Dev ECLIA methodology. . According to the [place] [employer], Serum PSA should decrease and [...] <30) between 19 and 39 years old. Marcoison, et.al. JCEM 2017,102;5449-2200. PMID: 11403207. 6 Units are mL/min/1.73 m2 Chronic Kidney Disease Staging per NKF: Stage I & II GFR >=60 Normal to Mildly Decreased Stage III GFR 30-59 Moderately Decreased Stage IV GFR 15-29 Severely Decreased Stage V GFR <15 Very Little GFR Left ESRD GFR <15 on PAYMENT MANAGER 7 VITAMIN B12 NORMAL RANGE NORMAL 247 [...] 0.1 ng/mL . Thyroglobulin measured by Tita [place] Immunometric Assay Performed at: - [facility] [address] [id number] Continuous Wave Operator: Kat Sarah MD, Phone: [phone] Thyroglobulin Antibody measu red by Tita [place] Methodology 11 REFERENCE RANGES: <=5.6% NORMAL 5.7-6.4% SUGGESTS IMPAIRED GLUCOSE META BOLISM/PREDIABETIC >= 6.5% ABNORMAL Procedures Description No Information Available Medical Devices Description No Information Available Encounters Type Date Location Provider Dx Diagnosis Office Visit 05/24/2020 11:40a [facility] ALTON Mar N48.1 Balanitis Office Visit 05/04/2020 3:20p [facility] AL[place] Mar B37.42 Candidal balanitis Office Visit 04/21/2020 2:20p [facility] AL[place] Mar E29.1 Testicular hypofunction G47.33 Obstructive sleep apnea (luz marina lt) (pediatric) Z98.84 Bariatric surgery status E66.8 Other obesity E03.9 Hypothyroidism, unspecified D75.1 Secondary polycythemia B37.9 Candidiasis, unspecified Office Visit 03/21/2020 2:00p [facility] AL[place] Mar E29.1 Testicular hypofunction G47.33 [...] 07/19/2020 1:00 pm - ALTON Mar at [facility] 05/24/2020 - ALTON Mar* N48.1 Balanitis* New [...] conservative care. Please eval and treat. Sent [facility] Nurse [facility] [address], [address] [facility] [address] [place] [address] [phone]
--- OUTSIDE RECORDS SUMMARY | 2020-08-27 00:17 | CCD ---
Author Author [facility] Organization [facility] Address Unknown Phone Unavailable Care Team Providers Care Fbi Investigator Name Role Phone Donovan Larson Unavailable Unavailable Donovan Larson Unavailable Unavailable Donovan Larson Unavailable Unavailable Donovan Larson Unavailable Unavailable Donovan Larson Unavailable Unavailable Donovan Larson Unavailable Unavailable Donovan Larson Unavailable Unavailable Donovan Larson Unavailable Unavailable Donovan Larson Unavailable Unavailable Donovan Larson Unavailable Unavailable Donovan Larson Unavailable Unavailable Marsha, Donovan PA Unavailable Unavailable Marsha, Donovan PA Unavailable Unavailable Marsha, Donovan PA Unavailable Unavailable Marsha, Donovan PA Unavailable Unavailable Marsha, Donovan PA Unavailable Unavailable Marsha, Donovan PA Unavailable Unavailable Marsha, Donovan PA Unavailable Unavailable Marsha, Donovan PA Unavailable Unavailable Marsha, Donovan PA Unavailable Unavailable Marsha, Donovan PA Unavailable Unavailable Marsha, Donovan PA Unavailable Unavailable Marsha, Donovan PA Unavailable Unavailable Marsha, Donovan PA Unavailable Unavailable Marsha, Donovan PA Unavailable Unavailable Marsha, Donovan PA Unavailable Unavailable Marsha, Donovan PA Unavailable Unavailable Marsha, Donovan PA Unavailable Unavailable Marsha, Donovan PA Unavailable Unavailable Marsha, Donovan PA Unavailable Unavailable Marsha, Donovan PA Unavailable Unavailable Marsha, Donovan PA Unavailable Unavailable Marsha, Donovan PA Unavailable Unavailable Marsha, Donovan PA Unavailable Unavailable Marsha, Donovan PA Unavailable Unavailable Marsha, Donovan PA Unavailable Unavailable Marsha, Donovan PA Unavailable Unavailable Marsha, Donovan PA Unavailable Unavailable Marsha, Donovan PA Unavailable Unavailable Marsha, Donovan PA Unavailable Unavailable Marsha, Donovan PA Unavailable Unavailable Marsha, Donovan PA Unavailable Unavailable Marsha, Donovan PA Unavailable Unavailable Marsha, Donovan PA Unavailable Unavailable Marsha, Donovan PA Unavailable Unavailable Marsha, Donovan PA Unavailable Unavailable Marsha, Donovan PA Unavailable Unavailable Marsha, Donovan PA Unavailable Unavailable Re-disclosure Warning The records that you are about to access may contain information from federally-assisted alcohol or drug abuse programs. If such information is present, then the following federally mandated warning applies: This information has been disclosed to you from records protected by federal confidentiality rules (42 CFR part 2). The federal rules prohibit you from making any further disclosure of this information unless further disclosure is expressly permitted by the written consent of the person to whom it pertains or as otherwise permitted by 42 CFR part 2. A general authorization for the release of medical or other information is NOT sufficient for this purpose. The Federal rules restrict any use of the information to criminally investigate or prosecute any alcohol or drug abuse patient.The records that you are about to access may contain highly sensitive health information, the redisclosure of which is protected by Article 27-F of the [facility] Public Health law. If you continue you may have access to information: Regarding HIV / AIDS; Provided by facilities licensed or operated by the [facility] Office of Mental Health; or Provided by the [facility] Office for People With Developmental Disabilities. If such information is present, then the following [facility] mandated warning applies: This information has been disclosed to you from confidential records which are protected by state law. State law prohibits you from making any further disclosure of this information without the specific written consent of the person to whom it pertains, or as otherwise permitted by law. Any unauthorized further disclosure in violation of state law may result in a fine or fdc sentence or both. A general authorization for the release of medical or other information is NOT sufficient authorization for further disc losure. Family History Family Member Name Family Member Gender Family Member Status Date o f Status Description Data Source(s) Unknown Unknown Problem [facility] ([facility]) Unknown Unknown Problem [facility] ([facility] father Unknown Female Problem [facility] ([facility] Encounters Encounter Providers Location Date Indications Data Source(s ) Outpatient Attender: Donovan DANG [facility] 07/19/2020 12:00:00 PM EST [facility] ([facility] Outpatient Attender: Donovan DANG [facility] 05/24/2020 11:40:00 AM EDT [facility] ([facility]) Outpatient Attender: Donovan DANG [facility] 05/04/2020 03:20:00 PM EDT [facility] ([facility]) Outpatient Attender: Donovan DANG [facility] 04/21/2020 02:20:00 PM EDT [facility] ([facility]) Outpatient Attender: Donovan DANG [facility] 03/21/2020 02:00:00 PM EDT [facility] ([facility]) Medications Medication Brand Name Start Date Product Form Dose Route Admi nistrative Instructions Pharmacy Instructions Status Indications Reaction Description Data Source(s) 20 mg 07/20/2020 12:00:00 AM EST tablet 30 TAKE ONE TABLET BY MOUTH EVERY DAY NEEDED TAKE ONE TABLET BY MOUTH EVERY DAY NEEDED SOLD: 07/25/2020 [facility]undo Fluconazole 150 MG Oral Tablet Fluconazole 05/24/2020 12:00:00 AM EDT ORAL active [facility] ([facility]) Prednisone 50 MG Oral Tablet Prednisone 05/24/2020 12:00:00 AM EDT ORAL completed [facility] ([facility]) 3 ML liraglutide 6 MG/ML Pen Injector [Saxenda] Saxenda 04/21/2020 12:00:00 AM EDT SUBCUTANEOUS active MEDE NT ([facility]) Novofine Plus 04/21/2020 12:00:00 AM EDT acti ve [facility] ([facility]) Fluconazole 150 MG Oral Tablet Fluconazole 04/21/2020 12:00:00 AM EDT ORAL completed [facility] ([facility]) BD Disposable Needle 23GX1" Precision Upperco 04/21/2020 12:00 :00 AM EDT active [facility] ([facility]) Syringe/Luer Lock/3ML/20G X 1-1/2" 04/21/2020 12:00:00 AM EDT active [facility] ([facility]) Insurance Providers Payer name Policy type / Coverage type Policy ID Covered alliance party ID Covered alliance party's relationship to [place] Policy [place] Plan Information [facility] [id number] SP [id number] BCBS EMPIRE [place] DIV [id number] SP [id number] [facility] INSURANCE [facility] [id number] SP [id number] [place] CORRECTIONS [id number] SP [id number] [facility] [id number] SP [id number] BCBS E[employer]IRE [place] DIV [id number] SP [id number] [facility] [id number] WI2 [id number] BCBS EMPIRE CHRISTIANO DIV [id number] WI2 [id number] [facility] INSURANCE [facility] SP [facility] [id number] WI2 [id number] Notrees Plan F [id number] SPOUSE [id number] BCBS EMPIRE BC [id number] SPO [id number] [facility] Notrees Health Maintenance Organization (HMO) [id number] Family Dependent [id number] BCBS EMPIRE BC [id number] SPO [id number] Notrees Plan F [id number] SPOUSE [id number] Notrees Plan F pending SPOUSE pending BLUE CROSS [id number] SELF [id number] WORKERS COMP [id number] SELF [id number] EMPIRE (STATE EMP) O [id number] S [id number] EMPIRE (STATE EMP) O UNAVAILABLE S UNAVAILABLE EMPIRE (STATE EMP) O [id number] S [id number] [facility] Notrees Commercial [id number] Family Depende nt [id number] BCBS EMPIRE CHRISTIANO DIV [id number] WI2 [id number] BCBS EMPIRE CHRISTIAN[place] DIV [id number] WI2 [id number] [facility] [employer] [id number] Self [id number] [facility] Notrees Health Maintenance Organization (HMO) Family Dependent [facility] Notrees Health Maintenance Organization (HMO) Family Dependent BCBS EMPIRE CHRISTIANO DIV [id number] SP [id number] [facility] O [id number] S [id number] [employer] [place] [id number] SP [id number] BCBS EMPIRE [place]RISTIAN[place] DIV B [id number] S [id number] [employer] [place] [id number] SP [id number] [employer] [place] O [id number] O [id number] [facility] EMPIRE PLAN(REFERRED SPEC) [id number] SELF [id number] BCBS EMPIRE CRHISTIANO DIV [id number] SP [id number] SELF PAY UNAVAILABLE SELF UNAVAILA BLE [facility]/Not[facility] Health Maintenance Organization (HMO) Self EXCELLUS BCBS [id number] Bridget YLS [id number] SELF PAY 2 UNAVAILABLE 1 UNAVAILA BLE [id number] Problems, Conditions, and Diagnoses Code Display Name Description Problem Type Effective Dates Data Source(s) 829096811 Tobacco user Tobacco user Problem 03/21/2020 12:00:00 A M EDT [facility] ([facility]) [id number] Obstructive sleep apnea syndrome Obstructive sle ep apnea syndrome Problem 03/21/2020 12:00:00 AM EDT [facility] ([facility]) [id number] Bariatric operative procedure Bariatric operative proc edure Problem 03/21/2020 12:00:00 AM EDT [facility] ([facility] [id number] Secondary erectile dysfunction Secondary erectile dysf unction Problem 03/21/2020 12:00:00 AM EDT [facility] ([facility]) [id number] Hypogonadism Hypogonadism Problem 03/21/2020 12:00:00 A M EDT [facility] ([facility]) [id number] Obesity Obesity Problem 03/21/2020 12:00:00 AM ED T [facility] ([facility]) Results ID Date Data Source [id number] 06/13/2020 08:33:00 AM EST [facility] ([facility]) Name Value Range Interpretation Code Description Data Florence rce(s) Supporting Document(s) Red Blood Count 5.89 10 4.30-6.10 Normal (applies to non-numeric results) [facility] ([facility]) Hemoglobin 18.1 g/dL 13.5-17.5 Above high normal [facility] ([facility]) White Blood Count 8.3 10 4.0-10.0 Normal (applies to non-numeri c results) [facility] ([facility]) Mean Corpuscular Hemoglobin 30.7 pg 27.0-33.0 Norm al (applies to non-numeric results) [facility] ([facility]) Mean Corpuscular Volume 91.3 fl 80.0-96.0 Normal ( applies to non-numeric results) [facility] ([facility]) Hematocrit 53.8 % 42.0-52.0 Above high normal [facility] Platelet Count, Automated 248 10 150-450 Normal (applies to non-numeric results) [facility] ([facility]) Red Cell Distribution Width 13.5 % 11.5-14.5 Norm al (applies to non-numeric results) [facility] ([facility]) Mean Corpuscular HGB Conc 33.6 g/dL 32.0-36.5 Normal (applies to non-numeric results) [facility] ([facility]) Neutrophils % 63.9 % 36.0-66.0 Normal (applies to non-numeric re sults) [facility] ([facility]) Florence % 10.4 % 0.0-5.0 Above high normal [facility] ([facility]) Lymph % 19.3 % 24.0-44.0 Below low normal [facility] ( [facility] Eos % 4.6 % 0.0-3.0 Above high normal [facility] ([facility]) Baso % 1.3 % 0.0-1.0 Above high normal [facility] ([facility]) Immature Granulocyte % 0.5 % 0-3.0 Normal (applies to non-n umeric results) [facility] ([facility]) Nucleated Red Blood Cell % 0.0 % 0-0 Normal (applies to n on-numeric results) [facility] ([facility]) Lymph # 1.6 10 1.5-5.0 Normal (applies to non-numeric resul ts) [facility] ([facility]) Neutrophils # 5.3 10 1.5-8.5 Normal (applies to non-numeric re sults) [facility] ([facility]) Florence # 0.9 10 0.0-0.8 Above high normal [facility] ([facility]) Eos # 0.4 10 0.0-0.5 Normal (applies to non-numeric resul ts) [facility] ([facility]) Baso # 0.1 10 0.0-0.2 Normal (applies to non-numeric resul ts) [facility] ([facility]) ID Date Data Source [id number] 06/13/2020 08:33:00 AM EST [facility] ([facility]) Name Value Range Interpretation Code Description Data [place] rce(s) Supporting Document(s) Testosterone Free (Direct) 22.2 pg/mL 8.7-25.1 Yenni l (applies to non-numeric results) [facility] ([facility]) Performed at: RN - [facility] [address], [place], [place] [id number] Operating Room Aide: Kat Sarah MD, Phone: [phone] Testosterone Total For T&D 814.0 ng/dL 264-691 Yenni l (applies to non-numeric results) [facility] ([facility]) <content>Adult male reference interval i s based on a population of</content>
<content>healthy nonobese males (BMI <30) between 19 and 39 years</content>
<content>old. Ana, et.al. JCEM 2017,102;5235-1424. PMID:</content>
<content>[id number].</content>
<content></content> ID Date Data Source [id number] 04/06/2020 03:13:00 PM EDT [facility] ([facility]) Name Value Range Interpretation Code Description Data [place] rce(s) Supporting Document(s) Hemoglobin A1c 5.2 % Normal (applies to non-numeric r esults) [facility] ([facility]) <content>REFERENCE RANGES:</content><br/ ><content></content>
<content><=5.6% NORMAL</content>
<content>5.7-6.4% SUGGESTS IMPAIRED GLUCOSE METABOLISM/PREDIABETIC</content>
<content>>= 6.5% ABNORMAL</content>
<content></content> Estimated Average Glucose 103 mg/dL 60-110 Normal (applies to non-numeric results) [facility] ([facility]) ID Date Data Source [id number] 04/06/2020 03:13:00 PM EDT [facility] ([facility]) Name Value Range Interpretation Code Description Data [place] rce(s) Supporting Document(s) Thyroglobulin Quantitative 26.8 ng/mL 1.4-29.2 Yenni l (applies to non-numeric results) [facility] ([facility]) . According to the National Academy of [...] Immunometric Assay Performed at: RN - [facility] [address] [id number] Operating Room Aide: Kat Sarah MD, Phone: [phone] Thryoglobulin Antibodies (Ray) Laboratory test result 0.0-0.9 Normal (applies to non-numeric results) [facility] ([facility]) Thyroglobulin Antibody measured by [employer] ID Date Data Source [id number] 04/06/2020 03:13:00 PM EDT [facility]) Name Value Range Interpretation Code Description Data Florence rce(s) Supporting Document(s) Thyroperoxidase Ab [Units/volume] in Serum or Plasma 857.5 U/ML Above high normal [facility] ([facility] ID Date Data Source [id number] 04/06/2020 03:13:00 PM EDT [facility] ([facility]) Name Value Range Interpretation Code Description Data [place] rce(s) Supporting Document(s) Thyroid Stimulating Hormone 3.140 uIU/ML 0.358-3.740 Norm al (applies to non- numeric results) [facility] ([facility] Free T4 1.09 ng/dL 0.76-1.46 Normal (applies to non-numeric resul ts) [facility] ID Date Data Source [id number] 04/06/2020 03:13:00 PM EDT [facility] ([facility]) Name Value Range Interpretation Code Description Data Florence rce(s) Supporting Document(s) Folate 3.4 ng/mL Normal (applies to non-numeric resul ts) [facility] ([facility]) FOLATE NORMAL RANGE NORMAL GREATER THAN 5.4 NG/ML INDETERMINATE 3.4-5.4 NG/ML DEFICIENT LESS THAN 3.4 NG/ML Vitamin B12 Level 1213 pg/mL Normal (applies to non-numeri c results) [facility] ([facility] VITAMIN B12 NORMAL RANGE NORMAL 247 - 911 PG/ML INDETERMINATE 211 - 246 PG/ML DEFICIENT LESS THAN 211 PG/ML ID Date Data Source [id number] 04/06/2020 03:13:00 PM EDT [facility] ([facility]) Name Value Range Interpretation Code Description Data [place] rce(s) Supporting Document(s) Calcidiol [Mass/volume] in Serum or Plasma 31.6 ng/mL 30.0- 100.0 Normal (applies to non-numeric results) [facility] ([facility]) ID Date Data Source [id number] 04/06/2020 03:13:00 PM EDT [facility] ([facility]) Name Value Range Interpretation Code Description Data [place] rce(s) Supporting Document(s) Glucose, Fasting 84 mg/dL 70-100 Normal (applies to non-numeric results) [facility] ([facility]) Glomerular Filtration Rate Laboratory test result Normal (applies to non- numeric results) [facility] ([facility]) <content>Units are mL/min/1.73 m2</content>
<content></content>
<content>Chronic Kidney Disease Staging per NKF:</content>
<content></content>
<content>Stage I & II GFR >=60 Normal to Mildly Decreased</content>
<content>Stage III GFR 30- 59 Moderately Decreased</content>
<content>Stage IV GFR 15-29 Severely Decreased</content>
<content>Stage V GFR <15 Very Little GFR Left</content>
<content>ESRD GFR <15 on ONCOLOGIST</content>
<content></content> Blood Urea Nitrogen 8 mg/dL 7-18 Normal (applies to non-nume radhika results) [facility] ([facility]) Creatinine For GFR 1.12 mg/dL 0.70-1.30 Normal (applies to non -numeric results) [facility] ([facility]) Sodium Level 138 meq/L 136-145 Normal (applies to non-numeric res ults) [facility] ([facility] Potassium Serum 4.8 meq/L 3.5-5.1 Normal (applies to non-numeric results) [facility] ([facility]) Chloride Level 107 meq/L 98-107 Normal (applies to non-numeric r esults) [facility] ([facility]) Calcium Level 9.5 mg/dL 8.5-10.1 Normal (applies to non-numeric re sults) [facility] ([facility] Anion Gap 3 meq/L 8-16 Below low normal [facility] ( [facility] Carbon Dioxide Level 28 meq/L 21-32 Normal (applies to non-num elva results) [facility] ([facility]) Alkaline Phosphatase 87 U/L 45-117 Normal (applies to non-num elva results) [facility] ([facility]) Alt/SGPT 50 U/L 12-78 Normal (applies to non-numeric resul ts) [facility] ([facility]) Ast/Sgot 22 U/L 7-37 Normal (applies to non-numeric resul ts) [facility] ([facility]) Bilirubin,Total 0.6 mg/dL 0.2-1.0 Normal (applies to non-numeric results) [facility] ([facility]) Albumin 3.8 GM/DL 3.2-5.2 Normal (applies to non-numeric resul ts) [facility] ([facility]) Total Protein 7.6 GM/DL 6.4-8.2 Normal (applies to non-numeric re sults) [facility] ([facility]) Albumin/Globulin Ratio 1.0 Normal (applies to non-n umeric results) [facility] ([facility]) ID Date Data Source [id number] 04/06/2020 03:13:00 PM EDT [facility] ([facility]) Name Value Range Interpretation Code Description Data Florence rce(s) Supporting Document(s) Testosterone Free (Direct) 11.7 pg/mL 8.7-25.1 Yenni l (applies to non-numeric results) [facility] ([facility] Testosterone Total For T&D 623.0 ng/dL 264-916 Yenni l (applies to non-numeric results) [facility] ([facility]) <content>Adult male reference interval i s based on a population of</content>
<content>healthy nonobese males (BMI <30) between 19 and 39 years</content>
<content>old. Ana et.al. JCEM 2017,102;0938-5488. PMID:</content>
<content>[id number].</content>
<content></content> ID Date Data Source [id number] 04/06/2020 03:13:00 PM EDT [facility] ([facility]) Name Value Range Interpretation Code Description Data Florence rce(s) Supporting Document(s) PSA Comment Laboratory test result Normal (applies to non- numeric results) [facility]) . The percent free PSA is performed on a reflex basis only when the total PSA is between 4.0 and 10.0 ng/mL. PSA Total 0.7 ng/mL 0.0-4.0 Normal (applies to non-numeric resul ts) [facility]) [employer] ECLIA methodology. . According to the [place] [employer], Serum PSA should decrease and [...] the presence or absence of malignant disease. ID Date Data Source [id number] 04/06/2020 03:13:00 PM EDT [facility] ([facility]) Name Value Range Interpretation Code Description Data [facility] rce(s) Supporting Document(s) White Blood Count 8.8 10 4.0-10.0 Normal (applies to non-numeri c results) [facility] ([facility] Red Blood Count 6.12 10 4.30-6.10 Above high normal [facility]) Hematocrit 55.3 % 42.0-52.0 Above high normal [facility]) Hemoglobin 19.1 g/dL 13.5-17.5 Above high normal [facility] ([facility] Mean Corpuscular Volume 90.4 fl 80.0-96.0 Normal ( applies to non-numeric results) [facility]) Mean Corpuscular HGB Conc 34.5 g/dL 32.0-36.5 Normal (applies to non-numeric results) [facility]) Mean Corpuscular Hemoglobin 31.2 pg 27.0-33.0 Norm al (applies to non-numeric results) [facility]) Platelet Count, Automated 237 10 150-450 Normal (applies to non-numeric results) [facility]) Neutrophils % 59.0 % 36.0-66.0 Normal (applies to non-numeric re sults) [facility] ([facility]) Red Cell Distribution Width 13.9 % 11.5-14.5 Norm al (applies to non-numeric results) [facility] ([facility] Lymph % 23.5 % 24.0-44.0 Below low normal [facility] ( [facility] Florence % 10.0 % 0.0-5.0 Above high normal [facility] ([facility]) Eos % 5.3 % 0.0-3.0 Above high normal [facility] ([facility]) Baso % 1.5 % 0.0-1.0 Above high normal [facility] ([facility]) Neutrophils # 5.2 10 1.5-8.5 Normal (applies to non-numeric re sults) [facility] ([facility]) Immature Granulocyte % 0.7 % 0-3.0 Normal (applies to non-n umeric results) [facility] ([facility]) Nucleated Red Blood Cell % 0.0 % 0-0 Normal (applies to n on-numeric results) [facility] ([facility]) [place] # 0.9 10 0.0-0.8 Above high normal [facility] ([facility]) Lymph # 2.1 10 1.5-5.0 Normal (applies to non-numeric resul ts) [facility] ([facility]) Baso # 0.1 10 0.0-0.2 Normal (applies to non-numeric resul ts) [facility] ([facility]) Eos # 0.5 10 0.0-0.5 Normal (applies to non-numeric resul ts) [facility] ([facility]) Procedure Vital Signs ID Date Data Source [id number] Name Value Range Interpretation Code Description Data Source(s) [place] body weight 172 [lb_av] 172 [lb_av] [facility] ([facility] Oxygen saturation in Arterial blood by Pulse oximetry 99 % 99 % [facility] ([facility] Body temperature 97.5 [degF] 97.5 [degF] [facility] ([facility] [facility]) Respiratory rate 18 /min 18 /min [facility] ( [facility] Heart rate 94 /min 94 /min [facility] ([facility] Body mass index (BMI) [Ratio] 37.4 kg/m2 37.4 k g/m2 [facility] ([facility] Body weight 269.50 [lb_av] 269.50 [lb_av] [facility] ([facility] Body height 71.2 [in_i] 71.2 [in_i] [facility] " Diastolic blood pressure 72 mm[Hg] 72 mm[Hg] [facility] ([facility] Systolic blood pressure 126 mm[Hg] 126 mm[Hg] M [facility] ([facility]) [place] body weight 172 [lb_av] 172 [lb_av] [facility] ([facility]) Oxygen saturation in Arterial blood by Pulse oximetry 97 % 97 % [facility] ([facility] Body temperature 98.0 [degF] 98.0 [degF] [facility] ([facility] Respiratory rate 16 /min 16 /min [facility] ( [facility] Heart rate 89 /min 89 /min [facility] ([facility]) Body mass index (BMI) [Ratio] 37.1 kg/m2 37.1 k g/m2 [facility] ([facility] Body weight 267.25 [lb_av] 267.25 [lb_av] [facility] ([facility] Body height 71.2 [in_i] 71.2 [in_i] [facility] ([facility]) " Diastolic blood pressure 78 mm[Hg] 78 mm[Hg] [facility] ([facility] Systolic blood pressure 124 mm[Hg] 124 mm[Hg] [facility] ([facility] [place] body weight 172 [lb_av] 172 [lb_av] [facility] ([facility] Oxygen saturation in Arterial blood by Pulse oximetry 96 % 96 % [facility] ([facility] Body temperature 98.2 [degF] 98.2 [degF] [facility] ([facility] Respiratory rate 16 /min 16 /min [facility] ( [facility] Heart rate 96 /min 96 /min [facility] ([facility] Body mass index (BMI) [Ratio] 37.6 kg/m2 37.6 k g/m2 [facility] ([facility] Body weight 271.25 [lb_av] 271.25 [lb_av] [facility] ([facility] Body height 71.2 [in_i] 71.2 [in_i] [facility] ([facility]) 5'06.17" Diastolic blood pressure 80 mm[Hg] 80 mm[Hg] [facility] Systolic blood pressure 126 mm[Hg] 126 mm[Hg] M [facility] ([facility] [place] body weight 172 [lb_av] 172 [lb_av] [facility] ([facility] Oxygen saturation in Arterial blood by Pulse oximetry 99 % 99 % [facility] ([facility] Body temperature 98.2 [degF] 98.2 [degF] [facility] ([facility] Respiratory rate 18 /min 18 /min [facility] ( [facility] Heart rate 105 /min 105 /min [facility] ([facility] Body mass index (BMI) [Ratio] 38.7 kg/m2 38.7 k g/m2 [facility] ([facility] Body weight 279.25 [lb_av] 279.25 [lb_av] [facility] ([facility] Body height 71.2 [in_i] 71.2 [in_i] [facility] ([facility]) 5'." Diastolic blood pressure 72 mm[Hg] 72 mm[Hg] [facility] ([facility] Systolic blood pressure 128 mm[Hg] 128 mm[Hg] [facility] [place] body weight 172 [lb_av] 172 [lb_av] [facility] ([facility] Oxygen saturation in Arterial blood by Pulse oximetry 95 % 95 % [facility] ([facility] Body temperature 98.1 [degF] 98.1 [degF] [facility] ([facility] Respiratory rate 18 /min 18 /min [facility] ( [facility] Heart rate 88 /min 88 /min [facility] ([facility] Body mass index (BMI) [Ratio] 38.0 kg/m2 38.0 k g/m2 [facility] ([facility] Body weight 274.00 [lb_av] 274.00 [lb_av] [facility] ([facility] Body height 71.2 [in_i] 71.2 [in_i] [facility] ([facility]) 5'11.20" Diastolic blood pressure 70 mm[Hg] 70 mm[Hg] [facility] ([facility] Systolic blood pressure 130 mm[Hg] 130 mm[Hg] [facility]ac[facility]AIDE[facility] ([facility]
[2020-08-27] MEDS ORDERED: SAXE1INJ (00:19)
[2020-08-27] MEDS ORDERED: TADA20TA (00:19)
--- NOTE | 2020-08-27 01:07 | REPVR ---
PROCEDURE INFORMATION: Exam: US Scrotum Exam date and time: 08/27/2020 12:56 AM Age: 39 years old Clinical indication: Scrotum pain; Additional info: Left testicular pain TECHNIQUE: Imaging protocol: Real-time ultrasound of the scrotum and contents with color Doppler and image documentation. COMPARISON: No relevant prior studies available. FINDINGS: Right testicle: Normal. No mass. No torsion. Normal vascular flow. Left testicle: Normal. No mass. No torsion. Normal vascular flow. Epididymides: Normal. Scrotum: Questionable small left scrotal varicocele. IMPRESSION: 1. No acute abnormality. 2. Questionable small left scrotal varicocele. Electronically signed by: Emory Del Valle On 08/27/2020 01:06:42 AM
[2020-08-27] MEDS ORDERED: METAL LOCK LOOP XX ONE (02:26)
[2020-08-27 03:30] VITALS: BP 128/87
== END 2020-08-27 03:30 | disposition home or self-care (01) ==
LOC: M ED 00:11
DX: I86.1 Scrotal varices (principal); Z79.899 Other long term (current) drug therapy; Z91.030 Bee allergy status

== ENCOUNTER → 2021-03-20 | Outpatient (REF) | payer BC, OTHER ==
[~2021-03-20] MED LIST changes: -DOXY100C37 PO; +DOXY1CAP62 PO; +SAXE1INJ; +TADA20TA
[2021-03-20 18:55] LABS: APPEARANCE, URINE CLEAR (CLEAR); BACTERIA, URINE AUTO NEGATIVE (NEGATIVE); BILIRUBIN, URINE AUTO NEGATIVE (NEGATIVE); BLOOD, URINE BLOOD NEGATIVE (NEGATIVE); COLOR, URINE YELLOW (YELLOW); GLUCOSE, URINE (UA) AUTO NEGATIVE (NEGATIVE); KETONE, URINE AUTO NEGATIVE (NEGATIVE); LEUKOCYTE ESTERASE, URINE AUTO NEGATIVE (NEGATIVE); NITRITE, URINE AUTO NEGATIVE (NEGATIVE); PROTEIN, URINE AUTO NEGATIVE (NEGATIVE); RBC, URINE AUTO 0 /HPF (0-3); SPECIFIC GRAVITY URINE AUTO 1.006 (1.002-1.035); SQUAMOUS EPITHELIAL CELL UR AU 0 /HPF (0-6); WBC, URINE AUTO 0 /HPF (0-3)
[2021-03-20 21:18] LABS: GC DNA AMPLIFICATION NEGATIVE (NEGATIVE)
== END ==
LOC: M LAB REF 18:14
PROVIDERS: ATTEND Physician Assistant
DX: R30.0 Dysuria (principal)

== ENCOUNTER → 2021-03-22 | Outpatient (CLI) | payer BC, OTHER ==
[2021-03-22 19:54] LABS: BASO # 0.1 10^3/uL (0.0-0.2); BASO % 0.6 % (0.0-1.0); EOS # 0.3 10^3/uL (0.0-0.5); EOS % 2.3 % (0.0-3.0); HEMOGLOBIN 17.9 g/dl (13.5-17.5); LYMPH # 1.5 10^3/uL (1.5-5.0); LYMPH % 12.4 % (24.0-44.0); MEAN CORPUSCULAR HEMOGLOBIN 31.2 pg (27.0-33.0); MEAN CORPUSCULAR HGB CONC 34.4 g/dl (32.0-36.5); MEAN CORPUSCULAR VOLUME 90.6 fl (80.0-96.0); MONO # 1.5 10^3/uL (0.0-0.8); MONO % 12.9 % (2.0-8.0); NEUTROPHILS # 8.4 10^3/uL (1.5-8.5); NEUTROPHILS % 71.3 % (36.0-66.0); PLATELET COUNT, AUTOMATED 219 10^3/uL (150-450); RED BLOOD COUNT 5.74 10^6/uL (4.30-6.10)
[2021-03-22 20:00] LABS: ALBUMIN 3.7 GM/DL (3.2-5.2); ALT/SGPT 33 U/L (12-78); BILIRUBIN,TOTAL 0.9 MG/DL (0.2-1.0); BLOOD UREA NITROGEN 9 MG/DL (7-18); CALCIUM LEVEL 9.8 MG/DL (8.5-10.1); CARBON DIOXIDE LEVEL 28 MEQ/L (21-32); CHLORIDE LEVEL 107 MEQ/L (98-107); CREATININE FOR GFR 1.27 MG/DL (0.70-1.30); GLOMERULAR FILTRATION RATE > 60.0 (>60); GLUCOSE, FASTING 71 MG/DL (70-100); POTASSIUM SERUM 4.8 MEQ/L (3.5-5.1); SODIUM LEVEL 139 MEQ/L (136-145); TOTAL PROTEIN 7.6 GM/DL (6.4-8.2)
[2021-03-22 20:01] LABS: MONO SCRN NEGATIVE (NEGATIVE)
[2021-03-22 20:27] LABS: WHITE BLOOD COUNT 11.8 10^3/uL (4.0-10.0)
== END ==
LOC: M WUC 15:33
PROVIDERS: ATTEND Physician Assistant
DX: R50.9 Fever, unspecified (principal)

== ENCOUNTER → 2021-10-13 | Outpatient (CLI) | payer BC, OTHER ==
[~2021-10-13] MED LIST changes: +DOXY-443 PO; -DOXY1CAP62 PO
[2021-10-13 13:42] LABS: BASO # 0.1 10^3/uL (0.0-0.2); BASO % 1.1 % (0.0-1.0); EOS # 0.2 10^3/uL (0.0-0.5); EOS % 3.6 % (0.0-3.0); HEMATOCRIT 52.1 % (42.0-52.0); LYMPH # 1.8 10^3/uL (1.5-5.0); LYMPH % 27.1 % (24.0-44.0); MEAN CORPUSCULAR HEMOGLOBIN 30.8 pg (27.0-33.0); MEAN CORPUSCULAR HGB CONC 34.5 g/dl (32.0-36.5); MEAN CORPUSCULAR VOLUME 89.1 fl (80.0-96.0); MONO # 0.8 10^3/uL (0.0-0.8); MONO % 12.6 % (2.0-8.0); NEUTROPHILS # 3.7 10^3/uL (1.5-8.5); NEUTROPHILS % 55.3 % (36.0-66.0); PLATELET COUNT, AUTOMATED 220 10^3/uL (150-450); RED BLOOD COUNT 5.85 10^6/uL (4.30-6.10); WHITE BLOOD COUNT 6.6 10^3/uL (4.0-10.0)
[2021-10-13 14:21] LABS: ALBUMIN 3.7 GM/DL (3.2-5.2); ALT/SGPT 57 U/L (12-78); AMYLASE 53 U/L (25-115); BILIRUBIN,TOTAL 1.4 MG/DL (0.2-1.0); BLOOD UREA NITROGEN 9 MG/DL (7-18); CALCIUM LEVEL 9.3 MG/DL (8.5-10.1); CARBON DIOXIDE LEVEL 30 MEQ/L (21-32); CHLORIDE LEVEL 103 MEQ/L (98-107); CREATININE FOR GFR 1.16 MG/DL (0.70-1.30); FREE T4 0.98 NG/DL (0.76-1.46); GLOMERULAR FILTRATION RATE > 60.0 (>60); GLUCOSE, FASTING 76 MG/DL (70-100); LIPASE 154 U/L (73-393); POTASSIUM SERUM 4.3 MEQ/L (3.5-5.1); SODIUM LEVEL 138 MEQ/L (136-145); TOTAL PROTEIN 7.1 GM/DL (6.4-8.2)
[2021-10-14 20:06] LABS: TISSUE TRANSGLUTAMINASE IgA <2 U/mL (0-3); TISSUE TRANSGLUTAMINASE IgG <2 U/mL (0-5); UNITSIGA FOR GLIADIN IGA 6 units (0-19); UNITSIGG FOR GLIADIN IGG 2 units (0-19)
== END ==
LOC: M LAB 12:18
PROVIDERS: ATTEND Family Medicine
DX: R19.7 Diarrhea, unspecified (principal); E03.9 Hypothyroidism, unspecified; E29.1 Testicular hypofunction

== ENCOUNTER → 2021-10-13 | Outpatient (REF) | payer BC, OTHER | LOC: M LAB REF 12:37 | PROVIDERS: ATTEND Family Medicine | DX: R19.7 Diarrhea, unspecified (principal) ==

== ENCOUNTER → 2022-02-15 | Outpatient (CLI) | payer BC, OTHER ==
[2022-02-15 16:33] LABS: FREE T4 1.07 NG/DL (0.76-1.46); PROSTATIC SPECIFIC AG MONITOR 0.34 NG/ML (< 4.00); THYROID STIMULATING HORMONE 2.52 uIU/ML (0.358-3.740)
== END ==
LOC: M LAB 14:52
PROVIDERS: ATTEND Internal Medicine Endocrinology, Diabetes & Metabolism
DX: E29.1 Testicular hypofunction (principal)

== ENCOUNTER → 2022-02-16 | Outpatient (REF) | payer OTHER | LOC: M LAB REF 13:34 | PROVIDERS: ATTEND Nurse Practitioner | DX: R14.3 Flatulence (principal); R19.7 Diarrhea, unspecified ==

== ENCOUNTER → 2022-04-17 | Outpatient (CLI) | payer BC, OTHER ==
[~2022-04-17] MED LIST changes: +CREO12CA; +LEVO175C PO; +OMEP-173
== END ==
LOC: M WHC 07:35
PROVIDERS: ATTEND Internal Medicine Medical Oncology
DX: D75.1 Secondary polycythemia (principal)

== ENCOUNTER → 2022-07-08 | Outpatient (CLI) | payer BC, OTHER ==
[2022-07-08 12:23] LABS: FREE T4 1.29 NG/DL (0.89-1.76); THYROID STIMULATING HORMONE 0.946 uIU/ML (0.55-4.78)
== END ==
LOC: M LAB 11:26
PROVIDERS: ATTEND Internal Medicine Endocrinology, Diabetes & Metabolism
DX: E29.1 Testicular hypofunction (principal)

== ENCOUNTER → 2022-09-26 | Outpatient (CLI) | payer BC, OTHER ==
[~2022-09-26] MED LIST changes: +ATIV1TAB7 PO
[2022-09-26 13:27] LABS: ALBUMIN 3.7 G/DL (3.2-5.2); BILIRUBIN,DIRECT 0.4 MG/DL (<0.4)
== END ==
LOC: M WUC 11:00
PROVIDERS: ATTEND Podiatrist
DX: Z79.899 Other long term (current) drug therapy (principal)

== ENCOUNTER → 2022-09-26 | Outpatient (CLI) | payer BC, OTHER ==
[2022-09-26 12:55] LABS: HEMATOCRIT 51.6 % (42.0-52.0); HEMOGLOBIN 17.7 g/dl (13.5-17.5); MEAN CORPUSCULAR HEMOGLOBIN 30.3 pg (27.0-33.0); MEAN CORPUSCULAR HGB CONC 34.3 g/dl (32.0-36.5); MEAN CORPUSCULAR VOLUME 88.4 fl (80.0-96.0); PLATELET COUNT, AUTOMATED 254 10^3/uL (150-450); RED BLOOD COUNT 5.84 10^6/uL (4.30-6.10); WHITE BLOOD COUNT 6.9 10^3/uL (4.0-10.0)
[2022-09-26 13:21] LABS: PROSTATIC SPECIFIC AG MONITOR 0.29 NG/ML (< 4.00)
[2022-09-26 13:25] LABS: THYROID STIMULATING HORMONE 1.101 uIU/ML (0.55-4.78)
== END ==
LOC: M WUC 10:47
PROVIDERS: ATTEND Internal Medicine Endocrinology, Diabetes & Metabolism
DX: D75.1 Secondary polycythemia (principal); E03.9 Hypothyroidism, unspecified

== ENCOUNTER → 2023-01-31 | Outpatient (CLI) | payer BC, OTHER ==
[2023-01-31 11:47] LABS: BASO # 0.1 10^3/uL (0.0-0.2); BASO % 1.1 % (0.0-1.0); EOS # 0.2 10^3/uL (0.0-0.5); EOS % 2.7 % (0.0-3.0); HEMATOCRIT 55.3 % (42.0-52.0); HEMOGLOBIN 18.7 g/dl (13.5-17.5); LYMPH # 1.4 10^3/uL (1.5-5.0); LYMPH % 22.2 % (24.0-44.0); MEAN CORPUSCULAR HGB CONC 33.8 g/dl (32.0-36.5); MEAN CORPUSCULAR VOLUME 88.8 fl (80.0-96.0); MONO # 0.8 10^3/uL (0.0-0.8); MONO % 12.8 % (2.0-8.0); NEUTROPHILS # 3.9 10^3/uL (1.5-8.5); NEUTROPHILS % 60.9 % (36.0-66.0); PLATELET COUNT, AUTOMATED 245 10^3/uL (150-450); RED BLOOD COUNT 6.23 10^6/uL (4.30-6.10); WHITE BLOOD COUNT 6.4 10^3/uL (4.0-10.0)
[2023-01-31 12:10] LABS: ALBUMIN 4.2 G/DL (3.2-5.2); ALKALINE PHOSPHATASE 92 U/L (46-116); ALT/SGPT 48 U/L (7.0-40); AST/SGOT 10 U/L (<34); BILIRUBIN,TOTAL 1.2 MG/DL (0.3-1.2); BLOOD UREA NITROGEN 10 MG/DL (9-23); CALCIUM LEVEL 9.9 MG/DL (8.5-10.1); CARBON DIOXIDE LEVEL 31 MMOL/L (20-31); CHLORIDE LEVEL 105 MMOL/L (98-107); CREATININE FOR GFR 1.11 MG/DL (0.70-1.30); GLOMERULAR FILTRATION RATE > 60.0 (>60); GLUCOSE, FASTING 83 MG/DL (60-100); POTASSIUM SERUM 4.6 MMOL/L (3.5-5.1); SODIUM LEVEL 141 MMOL/L (136-145); TOTAL PROTEIN 7.9 G/DL (5.7-8.2)
[2023-01-31 12:22] LABS: HEPATITIS B SURFACE ANTIGEN NEGATIVE (NEGATIVE)
[2023-01-31 12:35] LABS: HIV 1&2 SCREEN NEGATIVE (NEGATIVE)
[2023-01-31 12:42] LABS: HEPATITIS B CORE ANTIBODY IGM NEGATIVE (NEGATIVE)
[2023-01-31 12:43] LABS: HEPATITIS C VIRUS ABY INDEX 0.07 INDEX (<0.8)
== END ==
LOC: M LAB 10:19
PROVIDERS: ATTEND Physician Assistant
DX: Z79.899 Other long term (current) drug therapy (principal)

== ENCOUNTER → 2023-01-31 | Outpatient (REF) | payer OTHER | LOC: M SFHCDERM 12:17 | PROVIDERS: ATTEND Physician Assistant | DX: Z79.899 Other long term (current) drug therapy (principal) ==

== ENCOUNTER → 2023-05-09 | Outpatient (CLI) | payer OTHER ==
[2023-05-09 16:51] LABS: BASO # 0.1 10^3/uL (0.0-0.2); BASO % 1.8 % (0.0-1.0); EOS # 0.3 10^3/uL (0.0-0.5); HEMATOCRIT 53.7 % (42.0-52.0); HEMOGLOBIN 18.1 g/dl (13.5-17.5); LYMPH # 1.7 10^3/uL (1.5-5.0); LYMPH % 27.1 % (24.0-44.0); MEAN CORPUSCULAR HEMOGLOBIN 30.8 pg (27.0-33.0); MEAN CORPUSCULAR HGB CONC 33.7 g/dl (32.0-36.5); MEAN CORPUSCULAR VOLUME 91.3 fl (80.0-96.0); MONO # 0.6 10^3/uL (0.0-0.8); MONO % 9.8 % (2.0-8.0); NEUTROPHILS # 3.6 10^3/uL (1.5-8.5); NEUTROPHILS % 57.1 % (36.0-66.0); PLATELET COUNT, AUTOMATED 281 10^3/uL (150-450); RED BLOOD COUNT 5.88 10^6/uL (4.30-6.10); WHITE BLOOD COUNT 6.2 10^3/uL (4.0-10.0)
[2023-05-09 17:18] LABS: ALKALINE PHOSPHATASE 80 U/L (46-116); ALT/SGPT 43 U/L (7.0-40); AST/SGOT 24 U/L (<34); BILIRUBIN,TOTAL 0.8 MG/DL (0.3-1.2); BLOOD UREA NITROGEN 8 MG/DL (9-23); CALCIUM LEVEL 9.8 MG/DL (8.5-10.1); CARBON DIOXIDE LEVEL 31 MMOL/L (20-31); CHLORIDE LEVEL 104 MMOL/L (98-107); CHOLESTEROL LEVEL 157 MG/DL (<200); CHOLESTEROL RISK RATIO 2.56 (<5); CREATININE FOR GFR 1.09 MG/DL (0.70-1.30); GLOMERULAR FILTRATION RATE > 60.0 (>60); GLUCOSE, FASTING 86 MG/DL (60-100); HDL CHOLESTEROL 61.2 MG/DL (>40); LDL CHOLESTEROL 77.6 MG/DL (<100); NON-HDL-C 95.8 MG/DL; POTASSIUM SERUM 4.6 MMOL/L (3.5-5.1); SODIUM LEVEL 141 MMOL/L (136-145); TOTAL PROTEIN 7.6 G/DL (5.7-8.2); TRIGLYCERIDES LEVEL 91 MG/DL (<150)
== END ==
LOC: M WUC 10:19
PROVIDERS: ATTEND Family Medicine
DX: Z13.220 Encounter for screening for lipoid disorders (principal); Z13.29 Encounter for screening for other suspected endocrine disorder; Z13.0 Encounter for screening for diseases of the blood and blood-forming organs and certain disorders involving the immune mechanism

== ENCOUNTER → 2023-05-09 | Outpatient (CLI) | payer OTHER ==
[2023-05-09 16:55] LABS: BASO # 0.1 10^3/uL (0.0-0.2); BASO % 1.5 % (0.0-1.0); EOS # 0.2 10^3/uL (0.0-0.5); EOS % 3.7 % (0.0-3.0); HEMATOCRIT 53.3 % (42.0-52.0); HEMOGLOBIN 18.2 g/dl (13.5-17.5); LYMPH # 1.8 10^3/uL (1.5-5.0); LYMPH % 27.5 % (24.0-44.0); MEAN CORPUSCULAR HEMOGLOBIN 31.3 pg (27.0-33.0); MEAN CORPUSCULAR HGB CONC 34.1 g/dl (32.0-36.5); MEAN CORPUSCULAR VOLUME 91.7 fl (80.0-96.0); MONO # 0.6 10^3/uL (0.0-0.8); MONO % 9.7 % (2.0-8.0); NEUTROPHILS # 3.7 10^3/uL (1.5-8.5); NEUTROPHILS % 57.3 % (36.0-66.0); PLATELET COUNT, AUTOMATED 284 10^3/uL (150-450); RED BLOOD COUNT 5.81 10^6/uL (4.30-6.10); WHITE BLOOD COUNT 6.5 10^3/uL (4.0-10.0)
[2023-05-09 17:18] LABS: ALKALINE PHOSPHATASE 77 U/L (46-116); ALT/SGPT 45 U/L (7.0-40); AST/SGOT 22 U/L (<34); BILIRUBIN,TOTAL 0.7 MG/DL (0.3-1.2); BLOOD UREA NITROGEN 9 MG/DL (9-23); CALCIUM LEVEL 9.9 MG/DL (8.5-10.1); CARBON DIOXIDE LEVEL 31 MMOL/L (20-31); CHLORIDE LEVEL 103 MMOL/L (98-107); GLOMERULAR FILTRATION RATE > 60.0 (>60); GLUCOSE, FASTING 87 MG/DL (60-100); POTASSIUM SERUM 4.5 MMOL/L (3.5-5.1); SODIUM LEVEL 139 MMOL/L (136-145); TOTAL PROTEIN 7.5 G/DL (5.7-8.2)
== END ==
LOC: M WUC 10:27
PROVIDERS: ATTEND Physician Assistant
DX: Z79.899 Other long term (current) drug therapy (principal)

== ENCOUNTER → 2023-05-09 | Outpatient (CLI) | payer BC, OTHER ==
[2023-05-09 16:51] LABS: HEMATOCRIT 53.4 % (42.0-52.0); HEMOGLOBIN 18.1 g/dl (13.5-17.5); MEAN CORPUSCULAR HEMOGLOBIN 31.1 pg (27.0-33.0); MEAN CORPUSCULAR HGB CONC 33.9 g/dl (32.0-36.5); MEAN CORPUSCULAR VOLUME 91.8 fl (80.0-96.0); PLATELET COUNT, AUTOMATED 278 10^3/uL (150-450); RED BLOOD COUNT 5.82 10^6/uL (4.30-6.10); WHITE BLOOD COUNT 6.4 10^3/uL (4.0-10.0)
[2023-05-09 17:19] LABS: THYROID STIMULATING HORMONE 0.815 uIU/ML (0.55-4.78)
== END ==
LOC: M WUC 10:29
PROVIDERS: ATTEND Internal Medicine Endocrinology, Diabetes & Metabolism
DX: E29.1 Testicular hypofunction (principal); E03.9 Hypothyroidism, unspecified; D75.1 Secondary polycythemia

== ENCOUNTER → 2023-11-27 | Outpatient (REF) | payer BC, OTHER ==
[2023-11-27 14:16] LABS: HEMATOCRIT 51.6 % (42.0-52.0); HEMOGLOBIN 17.7 g/dl (13.5-17.5)
[2023-11-27 15:00] LABS: PSA SCREENING 0.38 NG/ML (< 4.00)
== END ==
LOC: M LABWUC 13:31
PROVIDERS: ATTEND Nurse Practitioner Family
DX: E29.1 Testicular hypofunction (principal)

== ENCOUNTER → 2023-11-27 | Outpatient (CLI) | payer BC, OTHER ==
[2023-11-27 14:00] LABS: BASO # 0.1 10^3/uL (0.0-0.2); BASO % 1.7 % (0.0-1.0); EOS # 0.2 10^3/uL (0.0-0.5); EOS % 3.4 % (0.0-3.0); HEMATOCRIT 52.3 % (42.0-52.0); HEMOGLOBIN 17.9 g/dl (13.5-17.5); LYMPH # 2.2 10^3/uL (1.5-5.0); LYMPH % 38.1 % (24.0-44.0); MEAN CORPUSCULAR HEMOGLOBIN 30.8 pg (27.0-33.0); MEAN CORPUSCULAR HGB CONC 34.2 g/dl (32.0-36.5); MEAN CORPUSCULAR VOLUME 89.9 fl (80.0-96.0); MONO # 0.7 10^3/uL (0.0-0.8); MONO % 12.5 % (2.0-8.0); NEUTROPHILS # 2.6 10^3/uL (1.5-8.5); NEUTROPHILS % 44.1 % (36.0-66.0); PLATELET COUNT, AUTOMATED 265 10^3/uL (150-450); RED BLOOD COUNT 5.82 10^6/uL (4.30-6.10); WHITE BLOOD COUNT 5.8 10^3/uL (4.0-10.0)
[2023-11-27 14:33] LABS: ALBUMIN 3.6 G/DL (3.2-5.2); ALKALINE PHOSPHATASE 66 U/L (46-116); ALT/SGPT 30 U/L (7.0-40); AST/SGOT 14 U/L (<34); BILIRUBIN,TOTAL 0.9 MG/DL (0.3-1.2); BLOOD UREA NITROGEN 11 MG/DL (9-23); CALCIUM LEVEL 9.5 MG/DL (8.5-10.1); CARBON DIOXIDE LEVEL 29 MMOL/L (20-31); CHLORIDE LEVEL 104 MMOL/L (98-107); CHOLESTEROL LEVEL 156 MG/DL (<200); CHOLESTEROL RISK RATIO 3.12 (<5); CREATININE FOR GFR 1.05 MG/DL (0.70-1.30); FREE T4 1.57 NG/DL (0.89-1.76); GLOMERULAR FILTRATION RATE > 60.0 (>60); GLUCOSE, FASTING 56 MG/DL (60-100); HDL CHOLESTEROL 49.9 MG/DL (>40); LDL CHOLESTEROL 90.3 MG/DL (<100); NON-HDL-C 106.1 MG/DL; POTASSIUM SERUM 4.4 MMOL/L (3.5-5.1); SODIUM LEVEL 141 MMOL/L (136-145); TRIGLYCERIDES LEVEL 79 MG/DL (<150)
== END ==
LOC: M WUC 08:33
PROVIDERS: ATTEND Nurse Practitioner Adult Health
DX: E06.3 Autoimmune thyroiditis (principal); K86.81 Exocrine pancreatic insufficiency; D75.1 Secondary polycythemia

== ENCOUNTER → 2024-01-10 | Outpatient (REF) | payer OTHER, BC ==
[~2024-01-10] MED LIST changes: +DOXY-323 PO; -DOXY-443 PO
== END ==
LOC: M LABWUC 13:04
PROVIDERS: ATTEND Nurse Practitioner Family
DX: E29.1 Testicular hypofunction (principal)

== ENCOUNTER → 2024-07-10 | Outpatient (CLI) | payer BC ==
[~2024-07-10] MED LIST changes: -CYCL5TAB PO; +CYCL5TAB4 PO; -DOXY-323 PO; +DOXY-441 PO
[2024-07-10 12:23] LABS: HEMATOCRIT 51.9 % (42.0-52.0); HEMOGLOBIN 17.8 g/dl (13.5-17.5)
== END ==
LOC: M WUC 10:33
PROVIDERS: ATTEND Nurse Practitioner Family
DX: E29.1 Testicular hypofunction (principal)

== ENCOUNTER → 2024-07-10 | Outpatient (CLI) | payer BC | LOC: M WUC 10:31 | PROVIDERS: ATTEND Physician Assistant | DX: L40.0 Psoriasis vulgaris (principal) ==

== ENCOUNTER → 2025-07-02 | Outpatient (CLI) | payer BC ==
[~2025-07-02] MED LIST changes: -LEVO175C PO; +LEVO175C2 PO; +LIDO1ADH93 TD; -LIDO5DIS41 TD
[2025-07-02 17:53] LABS: FREE T4 1.74 NG/DL (0.89-1.76)
[2025-07-02 17:54] LABS: TESTOSTERONE 1102.0 NG/DL (241-827)
== END ==
LOC: M LAB 16:51
PROVIDERS: ATTEND Nurse Practitioner Family
DX: E29.1 Testicular hypofunction (principal); E03.9 Hypothyroidism, unspecified